=== PATIENT | male | born 1950 | race Caucasian/White ===

== ENCOUNTER 2018-04-26 09:28 | Emergency (ER) | payer MEDICARE, OTHER, SELFPAY ==
[2018-04-26 09:30] VITALS: BP 147/109; PULSE 71; RESP 16; TEMP 36.5; O2SAT 98; BMI 29.1
[2018-04-26 09:38] VITALS: BP 179/87; PULSE 43; RESP 16; O2SAT 99
--- NOTE | 2018-04-26 09:57 | CT_ITS ---
STUDY: CT BRAIN WITHOUT CONTRAST REASON FOR EXAM: Male, 68 years old. Headache with hypertension RADIATION DOSAGE (If Supplied By Facility): CTDIvol = ( 44.99 ) mGy, DLP = ( 779.24 ) mGycm TECHNIQUE: Transaxial CT imaging of the brain was performed without administration of intravenous contrast material. Individualized dose optimization techniques were used for this CT. COMPARISON: None. FINDINGS: Normal soft tissue structures. Normal calvarium. There is mild cerebral atrophy with widening of the extra-axial spaces and ventricular dilatation. There are areas of decreased attenuation within the white matter tracts of the supratentorial brain, consistent with microvascular disease changes. Normal basal ganglia and thalami. Normal brainstem. Normal cerebellum. There is no intracranial hemorrhage. There are no findings of an acute ischemic infarction. Normal visualized paranasal sinuses. CT/Brain/Head without Contrast IMPRESSION: Chronic involutional changes of the brain. Electronically Signed: Jordon Leal DO at 10:56 EDT Tel , Service support ,
--- NOTE | 2018-04-26 09:57 | EKG12_ITS ---
Test Reason : Blood Pressure : / mmHG Vent. Rate : 063 BPM Atrial Rate : 063 BPM P-R Int : 170 ms QRS Dur : 084 ms QT Int : 414 ms P-R-T Axes : 063 019 041 degrees QTc Int : 423 ms Sinus rhythm with frequent Premature ventricular complexes OTHERWISE NORMAL EKG Confirmed by SATURNINO BOND ([id number]), editor book RALPH HIRSCH ([id number]) on 05/01/2018 10:36:08 AM Referred By: SWATI Confirmed By:SATURNINO BOND
[2018-04-26 10:04] LABS: Absolute Lymphocyte Count 1.26 X10^3/ul (0.83-4.51); Absolute Neutrophil Count 3.5 X10^3/uL (2.0-7.7); Basophil# 0.03 X10^3/uL; Basophil% 0.6 % (0-1); Eosinophil# 0.09 X10^3/uL; Eosinophils% 1.7 % (0-5); Hematocrit 45.9 % (40-54); Hemoglobin 15.5 g/dl (13.0-16.5); Lymphocyte # 1.26 X10^3/ul (4.0); Lymphocyte % 24.1 % (19-41); Mean Corp Hgb Conc 33.8 g/gl (32-36); Mean Corpuscular Hgb 30.2 pg (27.0-32.0); Mean Corpuscular Volume 89.5 fL (80-94); Mean Platelet Vol. 9.8 fl (6.2-12.0); Monocyte# 0.37 X10^3/uL; Monocyte% 7.1 % (0-10); Neutrophil # 3.46 X10^3/uL (2.7-7.7); Neutrophil % 66.3 % (47-70); Platelet Count 199 K/mm3 (150-450); RBC Distribution Width CV 12.9 % (11.6-14.6); RBC Distribution Width SD 41.5 fl (35.1-43.9); Red Blood Count 5.13 M/mm3 (4.6-6.2); White Blood Count 5.2 K/mm3 (4.4-11.0)
[2018-04-26] MEDS: Morphine 4 MG/ML Syringe IV (10:04)
[2018-04-26 10:05] LABS: POSITIVE COUNT NO; POSITIVE DIFFERENTIAL NO; POSITIVE MORPHOLOGY NO
[2018-04-26] MEDS: Ondansetron 4 MG/2 ML Vial IV (10:05)
[2018-04-26 10:19] LABS: Anion Gap 6 (5-15); BUN 18 mg/dL (7-18); Calcium,Total 9.1 mg/dL (8.5-10.1); Chloride 105 mmol/L (98-107); EST Glomerular Filtration Rate 64 mL/min (>60); Est Glom Filt Rate - Afr Amer 77 mL/min (>60); Estimated Creatinine Clearance 60.83 ml/min; Glucose 116 mg/dL (74-106); Potassium 4.2 mmol/L (3.5-5.1); Sodium Level 138 mmol/L (136-145)
[2018-04-26 10:52] VITALS: BP 154/102; PULSE 60; RESP 12; O2SAT 96
[2018-04-26 11:17] VITALS: BP 154/91; PULSE 60; RESP 16; O2SAT 95
--- NOTE | 2018-04-26 11:34 | ED.VISSUMM ---
- ER Visit Summary Date of Service: 04/26/18 Chief Complaint: Headache History of Present Illness: The patient is a [address] Dwayne Batista III and a industrial relations worker at [facility]. Reports that at 530 this morning he woke with a headache. It is gradually worsened. It is a diffuse pain that he describes as dull. It is 4 out of 10 currently and 7 out of 10 at worst. It is unrelieved by aspirin. It is worsened by nothing. He denies any photophobia. No recent trauma to his head. No fever or chills. Patient reports that he took his blood pressure at home it was 201/110. He is not on any medications for his hypertension. States that typically his blood pressure is normal in the morning and low in the evening. On review of systems patient reports that he has paresthesias in his hands bilaterally and that his arms feel heavy since March 20. He denies any neck pain or chest pain. Physical Examination: Vitals: Stable. Afebrile. Neck: Supple with no meningismus. Neuro: Cranial nerves II through XII are intact, 5 out of 5 strength throughout, normal sensation to light touch throughout except decreased sensation to light touch in his hands bilaterally. Normal gait. General: A&O x 3. NAD. Cardiovascular exam: Regular rate and rhythm, no murmur, rub or gallop. Respiratory exam: Clear to auscultation bilaterally. No wheezes or stridor. Abdominal exam: Soft, nontender, nondistended, normal bowel sounds. No peritoneal signs. Extremity: No clubbing, cyanosis, or edema. Test Results: CT head shows chronic changes. EKG is sinus at 63 with frequent PVCs and no ischemic changes. Is unchanged since August 2016. CBC is normal. Chem-7 is marked for a glucose of 116. Troponin is negative. Emergency Department Course and Treatment: Initial blood pressure was 179/87. This is decreased to 154/91 with no treatment. His headache is essentially resolved and he is resting comfortably. Treatment Plan: Patient will be discharged instructions to follow-up Dr. Dwayne Batista III in a week to get his blood sugar pressure checked again. Return to the emergency department for any worsening symptoms. Disposition: To home in improved and stable condition. Impression: 1. Cephalgia. 2. Hypertension. 3. Paresthesias in hands bilaterally, chronic. This note was generated with [employer] dictation software. It may contain incorrect words, spelling, and punctuation that were not noted in review of the chart prior to signing ED Disposition - Plan for ED Patient: Chief Complaint: Headache Instructions: ED Cephalgia Unspecified, ED Hypertension Poss Referrals: Dwayne Batista III, MD [Primary Care Provider] - 1 Week
[2018-04-26 12:05] VITALS: BP 162/101; PULSE 59; RESP 16; O2SAT 94
== END 2018-04-26 12:07 | disposition home or self-care (01) ==
LOC: ED 10:50
PROVIDERS: Emergency Provider Emergency Medicine; Family Provider Family Medicine; PCP Family Medicine
DX: R51 Headache (principal); I10 Essential (primary) hypertension; R20.2 Paresthesia of skin; E78.00 Pure hypercholesterolemia, unspecified; Z87.891 Personal history of nicotine dependence
CPT/HCPCS: 70450; 80048; 84484; 85025; 93005; 99284; A4216; J2405

== ENCOUNTER 2019-02-20 12:16 | Emergency (ER) | payer MEDICARE, OTHER, SELFPAY ==
[2019-02-20 12:17] VITALS: BP 137/87; PULSE 70; RESP 16; TEMP 36.3; O2SAT 97; BMI 30.2
--- NOTE | 2019-02-20 12:28 | CT_ITS ---
STUDY: CT ABDOMEN AND PELVIS WITH CONTRAST REASON FOR EXAM: Male, 68 years old. Consummation. History of small bowel obstruction. RADIATION DOSAGE (If Supplied By Facility): CTDIvol = ( 20.81 ) mGy, DLP = ( 1225.77 ) mGycm TECHNIQUE: Transaxial images were obtained from the dome of the diaphragm to the symphysis pubis with oral contrast. 100mL IV/Oral Isovue 300 was administered. Sagittal and coronal images were reconstructed. Individualized dose optimization techniques were used for this CT. COMPARISON: None. FINDINGS: Minimal increased markings at the lung bases suggestive of atelectasis. The visualized portions of the heart are within normal limits. Normal liver. Normal gallbladder and extrahepatic biliary system. Normal spleen. Normal pancreas. Normal bilateral adrenal glands. Normal right kidney. Normal left kidney. There is a small hiatal hernia. Normal small intestine. There are multiple colonic diverticula consistent with diverticulosis. The appendix is visualized and appears normal. There is diffuse atherosclerotic calcification of the abdominal aorta, without a demonstrated aneurysm. Normal inferior vena cava. Normal retroperitoneum. Normal urinary bladder. There is a right-sided inguinal hernia containing adipose tissue. Small umbilical hernia containing fat. Disc space narrowing and disc degeneration at the L5-S1 level with spondylosis. CT/Abdomen/Pelvis WITH Contrast IMPRESSION: No acute abnormality is seen. Electronically Signed: Quique Rosales, at 15:30 EDT , Service support ,
[2019-02-20 12:49] LABS: Bacteria 0 SEEN /hpf (None Seen); Mucous, Urine 0 SEEN /hpf (<or=2+); Red Blood Cells-Urine 0 SEEN /hpf (0-5); Squamous Epithelial Cells - UA 0 SEEN /hpf (0-5); White Blood Cells 0 SEEN /hpf (0-5)
[2019-02-20 12:57] LABS: Color, Urine Yellow (Yellow); Glucose, Dipstick Normal (Normal); Ketone-Dipstick Negative (Negative); Leukocyte Esterase-Dipstick Negative /ul (Negative); Nitrite-Dipstick Negative (Negative); Occult Blood-Urine Negative /ul (Negative); Protein-Dipstick Negative (Negative); Urine Bilirubin Dipstick Negative (Negative); Urine Clarity Clear (Clear); Urine Urobilinogen Normal (Normal)
[2019-02-20 13:04] LABS: Absolute Lymphocyte Count 1.47 X10^3/ul (0.83-4.51); Absolute Neutrophil Count 3.7 X10^3/uL (2.0-7.7); Basophil# 0.02 X10^3/uL; Basophil% 0.4 % (0-1); Eosinophil# 0.03 X10^3/uL; Eosinophils% 0.5 % (0-5); Hematocrit 49.2 % (40-54); Hemoglobin 16.9 g/dl (13.0-16.5); Lymphocyte # 1.47 X10^3/ul (4.0); Lymphocyte % 26.3 % (19-41); Mean Corp Hgb Conc 34.3 g/gl (32-36); Mean Corpuscular Volume 90.3 fL (80-94); Mean Platelet Vol. 9.6 fl (6.2-12.0); Monocyte# 0.36 X10^3/uL; Monocyte% 6.5 % (0-10); Neutrophil % 66.3 % (47-70); POSITIVE COUNT NO; POSITIVE DIFFERENTIAL NO; POSITIVE MORPHOLOGY NO; Platelet Count 226 K/mm3 (150-450); RBC Distribution Width CV 13.3 % (11.6-14.6); RBC Distribution Width SD 43.4 fl (35.1-43.9); Red Blood Count 5.45 M/mm3 (4.6-6.2); White Blood Count 5.6 K/mm3 (4.4-11.0)
[2019-02-20 13:09] LABS: ALB/GLOB Ratio 1.5 RATIO (0.9-2.4); AST(SGOT) 27 U/L (15-37); Alanine Aminotransfer ALT/SGPT 41 U/L (16-61); Albumin, Serum 4.3 g/dL (3.2-5.0); Alkaline Phosphatase 67 U/L (45-117); Anion Gap 3 (5-15); BUN 20 mg/dL (7-18); BUN/Creat Ratio 16.5 RATIO (10-20); Calcium,Total 9.4 mg/dL (8.5-10.1); Chloride 106 mmol/L (98-107); Creatinine, Serum 1.21 mg/dL (0.70-1.30); EST Glomerular Filtration Rate 63 mL/min (>60); Est Glom Filt Rate - Afr Amer 77 mL/min (>60); Estimated Creatinine Clearance 60.33 ml/min; Globulin 2.8 g/dL (2.2-4.2); Glucose 106 mg/dL (74-106); Lipase 217 U/L (73-393); Potassium 4.1 mmol/L (3.5-5.1); Protein, Total 7.1 g/dL (6.4-8.2); Sodium Level 139 mmol/L (136-145)
[2019-02-20 14:20] VITALS: BP 140/93; PULSE 56; RESP 16; TEMP 36.6; O2SAT 97
--- NOTE | 2019-02-20 15:49 | ED.DCSUM_ITS ---
- ER Visit Summary Date of Service: 02/20/19 Chief Complaint: Abdominal pain History of Present Illness: The patient is a 68 M who was referred to the emergency department by Dr. Smith. Patient was seen at the [facility] today and states he had some plain films of his abdomen that was concerning for ileus versus obstruction. He states about 15 years ago he had a small bowel obstruction. He states for the past week he is felt constipated he has been able to pass gas. He notes nausea. He denies that his abdomen is significantly distended right now. Does note some urinary frequency. He has had left inguinal hernia repair. He last had colonoscopy about 5 years ago. Physical Examination: Afebrile vital signs stable Gen: Well-nourished well-developed Head: Normocephalic atraumatic Eyes: Perrl EOMI ENT: TMs clear no rhinorrhea moist mucous membranes Neck: Supple no lymphadenopathy no JVD nontender CVS: Regular rate rhythm no murmurs normal S1-S2 Respiratory: No distress clear to auscultation bilaterally chest nontender Abdomen: Soft nontender nondistended normal bowel sounds no masses Back: Nontender Extremity: Nontender no edema Skin: Normal color no rash Neuro: alert orientated ?3 CN II-XII intact normal strength sensation reflexes gait cerebellar Psych: Normal affect normal mood Test Results: CBC chemistries were negative liver negative urinalysis normal. CT of the abdomen and pelvis was negative for acute. Emergency Department Course and Treatment: I reviewed the case with Dr. Smith. Patient can follow-up with him as an outpatient. Impression: 1. Constipation This note was generated with [employer] dictation software. It may contain incorrect words, spelling, and punctuation that were not noted in review of the chart prior to signing ED Disposition - Plan for ED Patient: Disposition: Home or Assisted Living Instructions: ED Constipation Referrals: Dwayne Batista III, MD [Primary Care Provider] - 1 Week Javed Verdugo MD [STAFF PHYSICIAN] - (call to arrange follow up)
[2019-02-20 16:11] VITALS: BP 143/87; PULSE 61; RESP 16; TEMP 36.6; O2SAT 99
== END 2019-02-20 16:21 | disposition home or self-care (01) ==
PROVIDERS: Emergency Provider Emergency Medicine; Family Provider Family Medicine; PCP Family Medicine
DX: K59.00 Constipation, unspecified (principal); I10 Essential (primary) hypertension; E78.00 Pure hypercholesterolemia, unspecified; Z87.891 Personal history of nicotine dependence
CPT/HCPCS: 74177; 80053; 81001; 83690; 85025; 99283; Q9967

== ENCOUNTER → 2019-03-05 08:56 | Outpatient (CLI) | payer MEDICARE, OTHER, SELFPAY ==
[2019-02-20 12:17] VITALS: BMI 30.2
--- NOTE | 2019-03-05 09:21 | RAD_ITS ---
PROCEDURE: SMALL BOWEL SERIES DATE OF EXAMINATION: March 05, 2019.. INDICATION: Male, 68 years old. Left upper quadrant pain for one month. PHYSICIAN: Quique Rosales M.D. FLUOROSCOPY TIME (if supplied): (0:10) minutes/seconds TECHNIQUE: Radiographic and fluoroscopic images were taken of the small intestine following the ingestion of barium. COMPARISON: None. FINDINGS: A preliminary supine KUB was obtained. Nonspecific bowel gas pattern. Fecal material is present throughout the colon. The lung bases are unremarkable. The osseous structures are normal. The patient orally ingested approximately 12 ounces of thin barium Normal visualized fundus, body, and antrum of the stomach. Normal duodenal bulb, C-loop, and proximal jejunum. Normal visualized mucosal folds of the jejunum and ileum. There are no demonstrated dilatations, strictures, or masses of the small intestine. There is no mass displacement of the loops of small intestine. There is a normal motor pattern with barium reaching the colon within approximately 90 minutes. Spot films under fluoroscopic observation demonstrated a normal terminal ileum and ileocecal valve. RAD/Small Bowel Series Only IMPRESSION: Normal small bowel series. Electronically Signed: Quique Rosales, at 14:45 EDT , Service support ,
== END ==
PROVIDERS: Family Provider Family Medicine; PCP Family Medicine; Referring Provider Surgery; Visit Provider Surgery
DX: R10.12 Left upper quadrant pain (principal); K59.00 Constipation, unspecified
CPT/HCPCS: 74250

== ENCOUNTER 2021-09-15 09:11 | Emergency (ER) | payer MEDICARE, SELFPAY ==
[2021-09-15 09:12] VITALS: BP 129/79; PULSE 70; RESP 18; TEMP 36.2; O2SAT 98; BMI 30.7
--- NOTE | 2021-09-15 09:35 | US_ITS ---
STUDY: ABDOMINAL ULTRASOUND - RIGHT UPPER QUADRANT REASON FOR VISIT: Male, 71 years old right upper quadrant pain and nausea. TECHNIQUE: Ultrasound evaluation of the right upper quadrant was performed with real-time and static chun-scale imaging. TECHNICAL QUALITY: Adequate. COMPARISON: None. FINDINGS: Liver: The liver measures 16.6 cm. There is increased echogenicity consistent with fatty infiltration. The bile ducts are within normal limits. There is hepatic color flow. The direction of portal flow is hepatopetal. There is no demonstrated mass lesion. Gallbladder: Normal distended gallbladder. The gallbladder wall is slightly thickened and measures 3.2 mm. There is a positive sonographic Nolan''s sign. There is no pericholecystic fluid. There are multiple echogenic structures within the gallbladder, consistent with multiple gallstones. Common Bile Duct (C.B.D.): The common bile duct measures 4.2 mm. Pancreas: Normal size of the head, body and tail of the pancreas. There is normal echogenicity of the pancreas. There is no demonstrated pancreatic mass or cyst. Right Kidney: Normal size of the right kidney. The right kidney measures 11 cm x 5.3 cm x 6 cm. Normal renal cortex. The right cortex measures 1.7 cm. There is no demonstrated renal mass or cyst. There is no right hydronephrosis. US/Gallbladder IMPRESSION: Fatty infiltration of the liver. Multiple gallstones. Positive NOLAN sign. Electronically Signed: Quique Rosales MD at 11:21 EST , Service support ,
--- NOTE | 2021-09-15 09:38 | EDS_ITS ---
HPI HPI - GI History of Present Illness Chief Complaint: Abd Pain Detail of Chief Complaint: Right upper quadrant abdominal pain. Informant: patient and spouse/S.O. Abdominal Pain/Flank Pain Onset: Today and Hours Context: Gradual Onset Timing: Continuous Quality: Aching Location: RUQ Current Severity: Mild Maximum Severity: Moderate Worsened by: Nothing Relieved by: Nothing Nausea/Vomiting/Emesis GI Symptom: Positive for Nausea; Negative for Vomiting Onset: Today Severity: Mild Diarrhea/Melena/Hematochezia GI Symptom: Negative for Diarrhea, Melena and Hematochezia Associated Symptoms Associated Symptoms: Negative for Dysuria and Frequency Narrative Narrative: 71-year-old male history of hypertension, prediabetes and high cholesterol. He has had a prior hernia repair. Still has his gallbladder. States he woke up this morning with nausea and gradually developed right upper quadrant abdominal pain. He denies any fever or chills. He has never had any issues with his gallbladder that he is aware of. He denies any recent food intolerances. Prior similar symptoms: No Recent Illness/Hospitalization: No PFSH PFSH Medical History Hypertension Home Medications hydrochlorothiazide 12.5 mg DAILY 02/20/19 [History Last Taken Unknown] amlodipine 5 mg PO DAILY 09/15/21 [History Last Taken Unknown] Allergy/AdvReac Type Severity Reaction Status Date / Time COUGH MEDICINE AdvReac Other Uncoded 02/20/19 12:17 Social History Smoking Status: Former smoker ROS ROS ED ROS Narrative Nausea. Right upper quadrant pain. Review of Systems ROS Unobtainable: Denies due to encephalopathy Constitutional Constitutional ED: Denies chills or fever(s) ENT ENT ED: Denies ear pain Cardiovascular Cardiovascular: Denies chest pain Respiratory/Chest Respiratory/Chest: Denies cough or dyspnea Gastrointestinal Gastrointestinal: Reports abdominal pain and nausea; Denies diarrhea or vomiting Genitourinary Genitourinary ED: Denies dysuria or hematuria Musculoskeletal Musculoskeletal: Denies myalgias Integumentary Denies rash Neurologic Neurologic: Denies headache(s) Psychiatric Psychiatric: Denies depression Endocrine Endocrinology: Denies polyuria Hematologic/Lymphatic Hematologic/Lymphatic: Denies easy bruising Allergic/Immunologic Allergic/Immunologic ED: Denies urticaria EXAM Physical Exam Narrative Exam Narrative: 31-year-old male vital signs stable afebrile. Does not look septic or toxic. HEENT exam unremarkable. Lungs clear to auscultation. Heart regular rhythm no murmur. Rate about 70. Abdomen soft nondistended normal bowel sounds no peritoneal signs. Right upper quadrant tenderness. Right lower quadrant and left side unremarkable. No hernia or mass. Moving all 4 extremities. No edema. Neurologically awake and alert. No focal motor deficits. Back nontender. Const Vital Signs: 09/15/21 09:12 09/15/21 11:01 Temperature 97.1 F L Temperature Source Temporal Pulse Rate 70 61 Respiratory Rate 18 16 Blood Pressure 129/79 H 122/75 H Blood Pressure Mean 95 90 Pulse Ox 98 96 Oxygen Delivery Method Room Air Room Air Positive well nourished and well developed; Negative for cachectic, contractures or unkempt General Appearance ED: well developed and NAD; Negative for unkempt, cachectic, contractures or pallor Nutritional Appearance: Negative for cachectic HEENT Reports moist mucous membranes normocephalic and atraumatic Eyes PERRL and EOMs intact bilaterally Neck no lymphadenopathy, supple and no JVD General: Negative for tenderness Resp normal respiratory effort and clear to auscultation bilaterally Auscultation: Negative for rales, rhonchi or wheezes Cardio regular rate, regular rhythm, S1 normal heart sound, S2 normal heart sound and no murmurs GI non-distended and no masses; Negative for non-tender GI Narrative: Right upper quadrant tenderness. Auscultation: normoactive bowel sounds Palpation: soft and tender Back/Spine no CVA tenderness General Back: Negative for CVA tenderness Cervical Spine: Negative for cervical spine tenderness Extremity full ROM General Extremety ED: Negative for edema or tenderness General Extremity: Negative for edema Neuro CN's II-XII intact bilaterally and moves all extremities Sensorium / Orientation: alert, oriented to person, oriented to place and oriented to time; Negative for orientation impaired Psych mental status grossly normal Appearance: Negative for unkempt Skin no wounds General Skin Exam: Negative for jaundice or pallor Lesions: no lesions Rashes: no rashes MDM MDM MDM Narrative Medical decision making narrative: 71-year-old male right upper quadrant abdominal pain suspect secondary to gallbladder disease either cholecystitis or stone versus other. Labs are being obtained with an ultrasound. Be treated with morphine for pain and Zofran for nausea. Repeat exam at 11:50 AM patient doing well. Abdomen is benign. No Nolan sign. No right upper quadrant pain. He is much improved after the medications. We went over his test results and the diagnosis of biliary colic. They wanted to follow-up with Dr. José Miguel Batista as a local surgeon. They will call his office. They know when to return if worse. Lab Data Attestation: I reviewed the patient's lab results. Lab results narrative: CBC shows a white count of 7. Hemoglobin 15. Electrolytes unremarkable gap of 8 BUN 21 creatinine 1.27. Glucose 162. Liver enzymes are normal. Lipase of 166. Ultrasound right upper quadrant shows multiple gallstones. Labs: Laboratory Results - last 24 hr 09/15/21 09/15/21 08:30 08:30 WBC 7.5 RBC 5.23 Hgb 15.7 Hct 45.9 MCV 87.8 MCH 30.0 MCHC 34.2 RDW Std Deviation 42.2 RDW Coeff of Christos 13.2 Plt Count 246 MPV 9.8 Immature Gran % (Auto) 0.400 Neut % (Auto) 83.0 H Lymph % (Auto) 10.7 L [place] % (Auto) 5.2 Eos % (Auto) 0.3 Baso % (Auto) 0.4 Absolute Neuts (auto) 6.2 Absolute Lymphs (auto) 0.80 L Nucleated RBC % 0 Sodium 139 Potassium 3.8 Chloride 106 Carbon Dioxide 25.0 Anion Gap 8 BUN 21 H Creatinine 1.27 Estim Creat Clear Calc 55.09 Est GFR (MDRD) Af Amer 72 Est GFR (MDRD) Non-Af 59 L BUN/Creatinine Ratio 16.5 Glucose 162 H Calcium 8.9 Total Bilirubin 0.60 AST 28 ALT 39 Alkaline Phosphatase 67 Total Protein 6.8 Albumin 3.6 Globulin 3.2 Albumin/Globulin Ratio 1.1 Lipase 166 Radiography Diagnostic Testing: Clinical Impression(s) from Imaging Studies Gallbladder Ultrasound 09/15/21 09:35 IMPRESSION: Fatty infiltration of the liver. Multiple gallstones. Positive NOLAN sign. Electronically Signed: Quique Rosales MD at 11:21 EST , Service support , Discharge Plan Triage Chief Complaint: Abd Pain ED Provider: Elio Brannon Dx/Rx/DC Orders Clinical Impression: Abdominal pain, acute, right upper quadrant, Gallstones without obstruction of gallbladder Instructions: ED Gallstones with Biliary Colic Prescriptions: No Action hydrochlorothiazide 12.5 MG capsule 12.5 mg DAILY RF: 0 amlodipine 5 mg Tablet 5 mg PO DAILY RF: 0 Primary Care Provider: Osvaldo Garcia Referrals: Dwayne Batista III, MD [STAFF PHYSICIAN] - José Miguel Batista MD [STAFF PHYSICIAN] - As soon as possible Activity Restrictions/Additional Instructions: Call and follow-up with Dr. José Miguel Batista about discussing with him having your gallbladder taken out. Return emergency department if intractable pain, vomiting or fever. [place] diet. Disposition Disposition: Home, Self Care
[2021-09-15] MEDS: morphine 8 MG/ML Syringe IV (09:45)
[2021-09-15] MEDS: Ondansetron 4 MG/2 ML Vial IV (09:45)
[2021-09-15 09:46] LABS: Absolute Neutrophil Count 6.2 X10^3/uL (2.0-7.7); Basophil# 0.03 X10^3/uL; Basophil% 0.4 % (0-1); Eosinophil# 0.02 X10^3/uL; Eosinophils% 0.3 % (0-5); Hematocrit 45.9 % (40-54); Hemoglobin 15.7 g/dL (13.0-16.5); Lymphocyte % 10.7 % (19-41); Mean Corp Hgb Conc 34.2 g/dL (32-36); Mean Corpuscular Volume 87.8 fL (80-94); Mean Platelet Vol. 9.8 fl (6.2-12.0); Monocyte# 0.39 X10^3/uL; Monocyte% 5.2 % (0-10); NRBC Flagged by Analyzer 0 % (0-5); Neutrophil # 6.23 X10^3/uL (2.7-7.7); Platelet Count 246 K/mm3 (150-450); RBC Distribution Width CV 13.2 % (11.6-14.6); RBC Distribution Width SD 42.2 fl (35.1-43.9); Red Blood Count 5.23 M/mm3 (4.6-6.2); White Blood Count 7.5 K/mm3 (4.4-11.0)
[2021-09-15] MEDS: 0.9% Normal Saline 1,000 ML 125 ML IV (09:46)
[2021-09-15 09:59] LABS: ALB/GLOB Ratio 1.1 RATIO (0.9-2.4); AST(SGOT) 28 U/L (15-37); Alanine Aminotransfer ALT/SGPT 39 U/L (16-61); Albumin, Serum 3.6 g/dL (3.2-5.0); Alkaline Phosphatase 67 U/L (45-117); Anion Gap 8 (5-15); BUN 21 mg/dL (7-18); BUN/Creat Ratio 16.5 RATIO (10-20); Calcium,Total 8.9 mg/dL (8.5-10.1); Chloride 106 mmol/L (98-107); Creatinine, Serum 1.27 mg/dL (0.70-1.30); EST Glomerular Filtration Rate 59 mL/min (>60); Est Glom Filt Rate - Afr Amer 72 mL/min (>60); Estimated Creatinine Clearance 55.09 ml/min; Globulin 3.2 g/dL (2.2-4.2); Glucose 162 mg/dL (74-106); Lipase 166 U/L (73-393); Potassium 3.8 mmol/L (3.5-5.1); Protein, Total 6.8 g/dL (6.4-8.2); Sodium Level 139 mmol/L (136-145)
[2021-09-15 11:01] VITALS: BP 122/75; PULSE 61; RESP 16; O2SAT 96
[2021-09-15 12:13] VITALS: BP 138/79; PULSE 54; RESP 16; O2SAT 98
== END 2021-09-15 12:13 | disposition home or self-care (01) ==
PROVIDERS: Emergency Provider Emergency Medicine; PCP Family Medicine
DX: K80.20 Calculus of gallbladder without cholecystitis without obstruction (principal); I10 Essential (primary) hypertension; Z79.899 Other long term (current) drug therapy; Z87.891 Personal history of nicotine dependence
CPT/HCPCS: 76705; 80053; 83690; 85025; 96361; 96374; 96375; 99283; J7030; A4216; J2405

== ENCOUNTER 2021-09-17 08:02 | Day surgery (SDC) | payer MEDICARE, SELFPAY ==
[2021-09-17] VITALS (9 sets, daily range): BP systolic 101–146; BP diastolic 46–87; PULSE 60–73; RESP 16–18; TEMP 36–36.2; O2SAT 93–99; BMI 29.6
--- NOTE | 2021-09-17 | GALL_PTH ---
PATIENT: COLT HURT LOC: [facility] U#:[id number] AGE/SX: 71/M ROOM: RE09/17/[address]: Dr. José Miguel Batista MD : 1950 BED: DIS: 09/17/2021 SPEC #: [id number] RECD: 09/18/21 09:52 STATUS: BRITTNEY WALKER #: [id number] DERICK: 09/17/21 00:[address]: José Miguel Batista DEPT: SURGICAL PATHOLOGY RECD BY: Atilio Horowitz ENTERED: 09/18/21 09:52 SP TYPE: SHIRA GIBSON DR: Osvaldo Garcia MD Tissues: Gallbladder, NOS Procedures: Surgery Specimen Level III HEADER OPERATION: Laparoscopic cholecystectomy with IOC PRE-OP DIAGNOSIS: Gallstones without obstruction of gallbladder and abdominal pain TISSUE SUBMITTED: Gallbladder MICROSCOPIC DIAGNOSIS Gallbladder, cholecystectomy: Chronic cholecystitis and cholelithiasis. SJ:madan 09/21/2021 MICROSCOPIC DESCRIPTION Slides are reviewed. GROSS DESCRIPTION Received is one container labeled with the patient's name and designated gallbladder. The specimen consists of a gallbladder measuring 8 cm in length and 3.5 cm in diameter. The external surface is pink-hoff, smooth and glistening for the most part. Focally it is granular, hemorrhagic and contains cautery artifact. The gallbladder contains five mulberry, yellowish-orange stones measuring in aggregate 2.5 x 1.5 x 1 cm and 0.3 to 1 cm in greatest dimension. The mucosa is bile-stained and without any mass lesions. The gallbladder wall measures up to 0.5 cm in thickness. Increased amount of subserosal fat is also noted. [employer] sections from the gallbladder and the cystic duct are submitted in one cassette. / SJ:madan 09/18/21 TC:3 CPT: 17590
--- NOTE | 2021-09-17 08:12 | RAD_ITS ---
EXAM: XR ABDOMEN, 2 VIEWS CLINICAL INDICATION: ABD PAIN Technologist Notes PT STATES NO PAIN, HAS INDIGESTION X COUPLE YEARS , HX OF HERNIA TECHNIQUE: Frontal view of the abdomen/pelvis with upright view of the abdomen. This report was created using [employer] report generation technology. COMPARISON: None. FINDINGS: LOWER THORAX: No acute pathology. INTRAPERITONEAL SPACE: No free air. GASTROINTESTINAL TRACT: Unremarkable. Non-obstructive. No bowel or stomach distention. ORGANS: Unremarkable as visualized. No organomegaly. No abnormal calcifications. BONES/JOINTS: No acute pathology. SOFT TISSUES: No acute pathology. RAD/Abd Inc Decub and/or Erect IMPRESSION: Unremarkable abdominal series. Electronically Signed: César Camacho MD at 17:00 EST , Service support ,
--- NOTE | 2021-09-17 13:08 | EKG12_ITS ---
Test Reason : PRE OP Blood Pressure : / mmHG Vent. Rate : 067 BPM Atrial Rate : 067 BPM P-R Int : 154 ms QRS Dur : 086 ms QT Int : 402 ms P-R-T Axes : -77 029 038 degrees QTc Int : 424 ms Unusual P axis, possible ectopic atrial rhythm Abnormal ECG When compared with ECG of 26-APR-2018 10:09, Ectopic atrial rhythm has replaced Sinus rhythm Confirmed by EREN RENEE, GURMEET ([id number]), primer expeditor and drier TAYE BACK ([id number]) on 09/22/2021 11:14:46 AM Referred By: José Miguel Batista Confirmed By:GURMEET JASON MD
[2021-09-17] MEDS: Famotidine 200 MG/20 ML MDV 40 MG in 0.9% Normal Saline (Pres. free 6 ML 150 MG IV (14:20)
--- NOTE | 2021-09-17 14:20 | PCM.HP.BLA ---
History and Physical Date of Admission: 09/17/21 Intake Visit Reasons: gallbladder, abd pain Chief Complaint: abdominal pain Accompanied by: Is patient in pain?: No Allergies Rrgluov-Rtf-Zno Reductase Inhibitor Allergy (Unknown, Verified 09/17/21 07:49) unknown COUGH MEDICINE Adverse Reaction (Uncoded 02/20/19 12:17) Other Medications hydrochlorothiazide 12.5 mg DAILY 02/20/19 [History Confirmed 09/17/21] amlodipine 5 mg PO DAILY 09/15/21 [History Confirmed 09/17/21] aspirin 81 mg capsule 81 mg PO DAILY 09/17/21 [History Confirmed 09/17/21] [facility] Medical History (Updated 09/17/21 @ 08:[address] José Miguel Batista MD) Abdominal pain, acute, right upper quadrant Gallstones without obstruction of gallbladder Hypertension Surgical History (Updated 09/17/21 @ 07:46 by Cyndi Michelle) History of hernia repair History of tonsillectomy Family History (Updated 09/17/21 @ 07:48 by Cyndi Michelle) Brother Arthritis Father Arthritis Hypertension High cholesterol Mother Hypertension High cholesterol Social History (Updated 09/17/21 @ 07:46 by Cyndi Michelle) Smoking Status: Former smoker alcohol intake: current substance use type: does not use HPI HPI HPI: COLT HURT, is a 71 M who presents to the office today for surgical consultation regarding abdominal pain. The patient is referred by emergency room physician Dr. Osvaldo Brannon and a written copy of my surgical consult and recommendations will return to him. The patient was seen in the [facility] emergency room on September 15, 2021 with a complaint of acute right upper quadrant pain. The patient had been nauseated though no vomiting. Right upper quadrant tenderness was noted on exam. He was afebrile. His laboratories notable for a white blood cell count of 7.5 with a hemoglobin 15.7 hematocrit 45.9 platelet count 246,000. BMP had a BUN of 21 and creatinine of 1.27. Liver function tests were normal. Lipase 166. A gallbladder ultrasound was obtained showing fatty infiltration of the liver multiple gallstones and there was felt to be a positive Nolan sign. It was recommended to the patient that he seek outpatient care and was referred to me for surgical treatment. The patient presents to the office with his . His story is much more complex than previously advertised. For years he has had abdominal bloating indigestion he frequently takes Gaviscon. Dr. Grover Verdugo 2 years ago did perform an upper endoscopy demonstrating duodenitis and gastritis. The patient was placed on omeprazole therapy but he took a course of that then he stopped it. He very frequently takes Gaviscon for symptoms of indigestion. He states that he was on statin medications which caused him to get very anxious. 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 He is not currently on a statin medication but he feels that it caused him to have an anxiety issue as well. He states several years ago he also had a colonoscopy with some few polyps. He states he is due for follow-up exam in 1 year. We have evidence of December 06, 2004 when he was hospitalized at [facility] for small bowel obstruction. CT scan suggested suspicious for early or incomplete small bowel obstruction. Appendix could not be identified. Very slight streaking of fat in the right side of the abdomen but no evidence for abscess. No fluid collection. At that time the patient had periumbilical and midepigastric pain. The exact etiology actually was never deciphered. He resolved with conservative measures. He frequently has burping and belching. He frequently has nausea. He frequently has upper abdominal discomfort left upper quadrant discomfort left lower quadrant discomfort. He had more right upper quadrant discomfort and that is why he went to the emergency room. He has not noticed any dark-colored urine. He has moved his bowels several times since the emergency room visit. No bright red blood per rectum or melena. No cari colored stools. This is the first time that he has been diagnosed with gallstone disease. ROS General General: Yes fatigue; No weight change, appetite, colon cancer, breast cancer or weakness HEENT HEENT: No difficulty swallowing, eye injury, eye surgery, swollen glands or hoarseness Endo Endocrine: No thyroid disease, diabetes mellitus, thyroid cancer, Hair loss, heat intolerance or cold intolerance Skin Skin: No rash or changing moles Breast Breast: No left breast lump, right breast lump, nipple discharge, breast pain, abnormal mammogram, abnormal US or breast enlargement Musc Musculoskeletal: Yes back problems; No arthritis, rheumatoid arthritis, gout or joint pain Cardio Cardiovascular: Yes high blood pressure; No murmur, pacemaker, heart disease, atrial fibrillation, heart attack, heart stent, palpitations, shortness of breat with exertion or chest pain Psych Psychiatric: Yes anxiety; No depression or hearing voices Resp Respiratory: No shortness of breath, No sleep apnea, No cough, No COPD, No asthma, No emphysema and No wheezing Gastro Gastrointestinal: Yes abdominal pain, Yes nausea or vomiting, No diarrhea, Yes constipation, No blood in stool, Yes acid reflux, No hemorrhoids, No ulcers, Yes gallbladder problem and No black,tarry stools Josh Hematologic: Yes blood thinners, No blood disorders, No bleeding, No anemia and No blood clots Neuro Neurologic: No system reviewed and no additional complaints, except as documented, No as per HPI, No abnormal gait, No abnormal hearing, No abnormal movements, No abnormal speech, No behavioral changes, No burning sensations, No confusion, No convulsions, No disequilibrium, No dizziness, No localized weakness, No frequent falls, No headache(s), No lack of coordination, No loss of vision, No memory loss, Yes numbness, No other visual disturbances, No radicular pain, No restless legs, No sensory deficit, No syncope, Yes tingling, No tremor(s), No weakness and No other Exam Const General: cooperative, comfortable and no acute distress Nutritional Appearance: overweight [facility] Head: normal to inspection Eyes General: appearance normal, both eyes and all related structures Chest Other: Increased anterior posterior diameter Cardio Rate: regular rate Rhythm: regular rhythm GI Other: Soft, overweight, normal bowel sounds, small umbilical hernia, mild tenderness left upper quadrant. Mild tenderness left lower quadrant. Mild tenderness right upper quadrant. Musc Cervical Spine: normal cervical lordosis Neuro General: patient alert and patient awake Extrem General: no calf tenderness Psych Appearance: grossly normal Assessment and Plan Assessment and Plan (1) History of peptic ulcer disease: Status: Acute (2) Gallstones without obstruction of gallbladder: Status: Acute (3) Abdominal pain, acute, right upper quadrant: Status: Acute (4) History of small bowel obstruction: Status: Acute Orders: Orders: Abd Inc Decub and/or Erect Today K80.20, R10.11 Plan Details Additional Comments: 71-year-old gentleman with a challenging presentation. He has newly diagnosed gallstones. He had the majority of his pain in the right upper quadrant. I suspect that the symptoms that took him to the emergency room likely are biliary colic chronic cholecystitis cholelithiasis. However he has a documented history of peptic ulcer disease. He complains of frequent indigestion. Although he was previously prescribed omeprazole 40 mg daily he is not currently taking that and he is not currently on any acid reducing medications other than as needed Gaviscon. He states the Gaviscon did not relieve his current problem though frequently it does. He has frequent burping and belching. He states that he felt that this episode was similar to the episode in 2004 when he was diagnosis of potential bowel obstruction. However upon reviewing that dictation it was quite nonspecific for bowel obstruction versus other. He has not had a similar hospitalization since that time. I recommend to him that we obtain supine and upright abdominal x-rays. If that demonstrates a normal gas pattern then I have offered him a laparoscopic cholecystectomy with selective cholangiography and I discussed technique benefit risk complications alternatives. I do believe that he should be initiated on acid reducing medication as well. Will consider rerecommending omeprazole 40 mg daily as he may well have a degree of stress gastritis. If his bowel gas pattern is abnormal then I would consider getting a CT scan of the abdomen. He might also then benefit from a upper endoscopy. He has had an opportunity ask and have questions answered. We will schedule and proceed as noted. Copy: Dr. Osvaldo Brannon and Dr. Osvaldo Batista M.D., F.A.C.S. I have re-examined the patient. There are no clinical changes since date of exam.
--- NOTE | 2021-09-17 14:21 | EX.PCM.DISCH ---
Discharge Instructions Procedure General Surgery Diet Discharge Diet: Light diet - advance as tolerated (if you have questions about your diet instructions, please talk to you doctor.) Activity Discharge Activity: May Not Drive (for 3-5 days or while taking narcotic pain medicine.) May shower in (days): 1 Lifting Restrictions: 10 pounds Dressing / Incision Call your doctor if your incision/area has: Continuous Slow Oozing, Sudden Increased Bleeding, Increased Pain/ Swelling, Increased Redness and Foul Smelling Discharge Call your doctor if you observe: Fever of 101 or Higher Suture Line Care: Avoid Pulling/Pushing and Avoid Pinching/Bending Additional Dressing/Incision Instructions:: Change or remove dressing in 4 days. Leave steri-strips in place for 1 week. Follow Up Care Please Follow Up With: José Miguel Batista MD When: Call [phone] to make an appointment to be seen in about 10 days. Test Results: Test results from this visit will be discussed in further detail at your follow-up appointment, if applicable. Discharge Plan Admission Attending Provider: José Miguel Batista Primary Care Provider: Osvaldo Garcia Discharge Orders/Prescriptions Prescriptions: No Action aspirin 81 mg capsule 81 mg PO DAILY RF: 0 omeprazole 40 mg capsule,delayed release(DR/EC) 40 mg PO DAILY Qty: 90 RF: 3 hydrochlorothiazide 12.5 MG capsule 12.5 mg DAILY RF: 0 amlodipine 5 mg Tablet 5 mg PO DAILY RF: 0
[2021-09-17] MEDS: Cefazolin 2 GM in 0.9% Normal Saline 100 ML IV (15:01)
--- NOTE | 2021-09-17 15:20 | RAD_ITS ---
CLINICAL HISTORY: Male, 71 years old. Cholelithiasis PROCEDURE: CHOLANGIOGRAM - transhepatic FLUOROSCOPY TIME (if supplied): (0.7) seconds Placement of the catheter and the procedure were performed by: Operating surgeon Fluoroscopy was provided by cytometry technologist, who was present in the room time of the procedure. TECHNIQUE: Fluoroscopic guided transhepatic cholangiogram was performed in the anterior projection. The study was videotaped for future review. FINDINGS: 159 images were obtained during the exam. For more complete information recommend correlation with surgical notes RAD/Cholangiogram/ O R,Initial IMPRESSION: Fluoroscopic guided transhepatic cholangiogram Electronically Signed: Osvaldo Orozco MD at 16:42 EST , Service support ,
--- NOTE | 2021-09-17 16:17 | OP.PCM_ITS ---
Problems Associated Problem List Diagnoses (1) Cholelithiasis with chronic cholecystitis: Report of Operation Date of Procedure: 09/17/21 Pre-Operative Diagnosis: Chronic cholecystitis cholelithiasis Post-Operative Diagnosis: Same Surgery/Procedure Performed:: Laparoscopic cholecystectomy with cholangiograms Description of Surgical Findings:: Timeout informed consent was obtained. [age]-year-old gentleman was taken to the operating placement table underwent general endotracheal intubation esthesia. Ancef 2 g were given intravenously. The abdomen sterilely prepped draped. 0.5% Marcaine was used as a local anesthetic. Throughout the procedure total 30 cc was used. Skin sites were preanesthetized. A supraumbilical transverse incision was created sharp dissection carried down through the subcutaneous tissue holding sutures of 0 Vicryl placed varies needle inserted first pass suggested that the saline drop test was normal but the air insufflation test failed I reposition the needle this time got good air insufflation then inflated to 10 mmHg pressure inserted a 10 mm trocar inspection revealed that there was a small amount of pneumo mesentery. I put 5 mm trochars in the epigastric mid abdomen right upper quadrant that area of pneumo mesentery of the small bowel was carefully carefully inspected both laparoscopically and the end of the procedure through the umbilical incision in a slightly open technique. There is absolutely no evidence of any bowel involvement. Small amount of air in the mesentery. There is no bleeding. This was felt to be secondary to the Veress needle which had been immediately curtailed after initiation. The patient was placed in reverse Trendelenburg position. Gallbladder was obscured by fibrofatty tissue. Tedious and carefully the fatty tissue surrounding the gallbladder was bluntly eating and dissected free and dissected free with electrocautery. Finally the wall of the gallbladder could be identified dissected down to the infundibular area and got the critical view where I had the cystic artery and cystic duct. The cystic artery was clipped twice proximally once distally prior to transecting it. A Hem-o-faustino clip was placed on the cystic duct incision in the cystic duct and then a cholangiogram catheter was introduced through a 14-gauge Angiocath. Cholangiograms were obtained fluoroscopically demonstrating a long cystic duct but free flow into the common bile duct free flow into the small bowel had good retrograde flow without any evidence of intraluminal filling defect. An additional Hem-o-faustino clip was placed on the cystic duct stump prior to transecting it. There appeared to be a posterior cystic artery that was also clipped with a Hemoclip. The gallbladder was dissected free from the liver bed using electrocautery complete hemostasis is intact with electrocautery and hemoclips lock clips were indicated. The gallbladder was released there was no spillage the gallbladder bed inspected completely hemostatic the gallbladder was placed in a retrieval bag and exited at the umbilicus. The trochars were removed after gas was exited through an antiviral valve. The fascia antibiotics approximated running 0 Vicryl. Skin edges approximated opted for Monocryl subdermal stitches. Steri- Strips Telfa OpSite dressings applied. Sponge and instrument and needle counts were reported to the surgeon be correct. Blood loss was minimal. Specimens gallbladder. Drains none. Blood loss minimal. José Miguel Batista M.D., F.A.C.S. Surgeon: José Miguel Batista Type of Anesthesia: General Anesthesiologist: Clarence Gibson
[2021-09-17] MEDS: Bupivacaine Mpf 0.5% 30 ML VIAL (16:18)
== END 2021-09-17 19:05 | disposition home or self-care (01) ==
LOC: RAD 09:07 → SDC 09:08 → AC 13:01
PROVIDERS: PCP Family Medicine; Referring Provider Surgery; Visit Provider Surgery
PROC: (CPT 47610; principal; 2021-09-17 14:55)
DX: K80.10 Calculus of gallbladder with chronic cholecystitis without obstruction (principal); I10 Essential (primary) hypertension; K21.9 Gastro-esophageal reflux disease without esophagitis; Z79.899 Other long term (current) drug therapy; Z87.891 Personal history of nicotine dependence; Z87.11 Personal history of peptic ulcer disease
CPT/HCPCS: 00790; 47563; 74019; 74300; 76000; 88304; 93005; J7120; J2405; J3490

== ENCOUNTER 2021-10-19 14:33 | Inpatient (IN) | payer MEDICARE, SELFPAY ==
[2021-10-19 14:34] VITALS: BP 131/74; PULSE 117; RESP 18; TEMP 36.7; O2SAT 95; BMI 29.9
[2021-10-19 16:29] LABS: Absolute Lymphocyte Count 0.69 X10^3/uL (0.83-4.51); Absolute Neutrophil Count 12.5 X10^3/uL (2.0-7.7); Basophil# 0.02 X10^3/uL; Basophil% 0.1 % (0-1); Hematocrit 52.4 % (40-54); Lymphocyte # 0.69 X10^3/ul (0.83-4.51); Mean Corp Hgb Conc 34.7 g/dL (32-36); Mean Corpuscular Hgb 30.2 pg (27.0-32.0); Mean Platelet Vol. 9.5 fl (6.2-12.0); Monocyte# 0.66 X10^3/uL; Monocyte% 4.7 % (0-10); NRBC Flagged by Analyzer 0 % (0-5); Neutrophil # 12.52 X10^3/uL (2.7-7.7); Neutrophil % 89.9 % (47-70); Platelet Count 268 K/mm3 (150-450); RBC Distribution Width CV 13.2 % (11.6-14.6); RBC Distribution Width SD 41.2 fl (35.1-43.9); Red Blood Count 6.02 M/mm3 (4.6-6.2); White Blood Count 13.9 K/mm3 (4.4-11.0)
--- NOTE | 2021-10-19 16:44 | CT_ITS ---
INDICATION: Distention, nausea vomiting, no flatus EXAMINATION: CT Abdomen And Pelvis W/ Contrast Injection TECHNIQUE: Helically acquired images were obtained of the abdomen and pelvis after IV contrast. A radiation dose optimization technique was used for this scan. IV Contrast dosage and agent: IV 100mL [id number]-300 Oral contrast: None. COMPARISON: 02/20/2019. FINDINGS: Visualized lung bases: Unremarkable Liver: Unremarkable Gallbladder: Surgically absent. Spleen: Unremarkable Pancreas: Unremarkable Adrenal Glands: Unremarkable Kidneys: Unremarkable Vasculature: Mild scattered aortoiliac atherosclerotic calcifications. GI Tract: There is fluid-filled dilatation of the proximal small bowel measuring up to 4 cm in diameter. There is no clear transition point, however the distal small bowel gradually tapers down near the mid ileum. No free air or free fluid. Scattered colonic diverticula. Lymphadenopathy: None Peritoneum: No ascites. Bladder: Unremarkable Reproductive organs: Unremarkable Bones/Soft tissues: Mild scattered degenerative changes of the visualized spine. Small umbilical fat-containing hernia. Small right fat-containing inguinal hernia. CT/Abdomen/Pelvis W IV Cont ONLY IMPRESSION: Findings concerning for small bowel obstruction with no clear transition point, however the distal small bowel gradually tapers down near the mid ileum. Electronically Signed: Frankie Bryant MD at 17:56 EST Tel , Service support ,
[2021-10-19 16:45] LABS: Anion Gap 8 (5-15); BUN 21 mg/dL (7-18); BUN/Creat Ratio 14.7 RATIO (10-20); Chloride 106 mmol/L (98-107); Creatinine, Serum 1.43 mg/dL (0.70-1.30); EST Glomerular Filtration Rate 52 mL/min (>60); Est Glom Filt Rate - Afr Amer 63 mL/min (>60); Estimated Creatinine Clearance 48.92 ml/min; Glucose 148 mg/dL (74-106); Hemoglobin 18.2 g/dL (13.0-16.5); Sodium Level 141 mmol/L (136-145)
[2021-10-19 16:46] LABS: Differential Indicated SCAN CRITERIA MET
[2021-10-19] MEDS: Ondansetron 4 MG/2 ML Vial IV ×2 (17:20→20:43)
--- NOTE | 2021-10-19 18:07 | ED.VIS.GI ---
HPI HPI - GI History of Present Illness Chief Complaint: Nausea/Vomiting Detail of Chief Complaint: Johnathan distention, nausea vomiting Informant: patient and spouse/S.O. Abdominal Pain/Flank Pain Onset: Today (Vomited 10 times since midnight) and Yesterday Context: Sudden Onset Timing: Continuous and Waxes and wanes Quality: Aching Location: Diffuse Current Severity: Mild Maximum Severity: Moderate Worsened by: Nothing Relieved by: Nothing Nausea/Vomiting/Emesis GI Symptom: Positive for Nausea and Vomiting Onset: Today Episodes: 10 Diarrhea/Melena/Hematochezia GI Symptom: Negative for Diarrhea, Melena and Hematochezia Associated Symptoms Associated Symptoms: Negative for Dysuria, Frequency, Hematuria and Urgency Narrative Narrative: Of cholelithiasis September 17, [address] José Miguel Batista. Patient has remote history of partial small bowel obstruction. He states the obstruction resolved after placement of NG. He denies fever, chills night sweats. Denies headache, visual, ocular auditory symptoms. Denies cardiac respiratory symptoms. He denies symptoms. He is not been passing gas this afternoon. He does report abdominal distention. He reports emesis x10 since midnight. There is no blood or coffee grounds in the emesis.Patient is a 71-year-old male Prior similar symptoms: Yes Recent Illness/Hospitalization: Yes PFSH PFS Medical History Abdominal pain, acute, right upper quadrant Anxiety Back pain Cancer Former smoker Gallstones without obstruction of gallbladder Gastric reflux Heartburn Hernia High cholesterol History of echocardiogram History of irregular heartbeat History of stress test History of ulceration Hoarseness Hypertension Injury of back Meniscus degeneration Prostate disease Tonsil and adenoid disease, chronic Wears glasses Home Medications hydrochlorothiazide 12.5 mg DAILY 02/20/19 [History Last Taken Unknown] amlodipine 5 mg PO DAILY 09/15/21 [History Last Taken Unknown] aspirin 81 mg capsule 81 mg PO DAILY 09/17/21 [History Last Taken Unknown] omeprazole 40 mg capsule,delayed release 40 mg PO DAILY #90 cap 09/17/21 [Rx Last Taken Unknown] ezetimibe 10 mg PO DAILY 10/19/21 [History Last Taken Unknown] Allergy/AdvReac Type Severity Reaction Status Date / Time [id number] Reductase Allergy Unknown unknown Verified 10/19/21 14:34 Inhibitor [Sejdavg-Rnq-Fsu Reductase Inhibitor] COUGH MEDICINE AdvReac Other Uncoded 10/19/21 14:34 Family History Brother Arthritis Father Arthritis Hypertension High cholesterol Mother Hypertension High cholesterol Surgical History History of hernia repair History of laparoscopic cholecystectomy History of tonsillectomy Social History adopted: No household members: spouse housing: house number of children: 2 current occupational status: retired current occupational exposures/hazards: No pets and animals: No sexually active: Yes Smoking Status: Former smoker Tobacco: How many years used: 25 alcohol intake: current substance use type: does not use well-balanced diet: daily or most days caffeine: Yes eating out: 1-3 times/week during the past year weight has: remained stable what type of physical activity do you participate in: walking and additional frequency: 3-4 times per week duration: 60-90 minutes/day viviana/hinduism: Episcopal seatbelt use: always do you feel safe at home: Yes ROS ROS ED Constitutional Constitutional ED: Denies chills, fever(s), subjective or sweats ENT ENT ED: Denies ear pain, rhinorrhea or sore throat Cardiovascular Cardiovascular: Denies chest pain, orthopnea, palpitations, paroxysmal nocturnal dyspnea or racing heartbeat Respiratory/Chest Respiratory/Chest: Denies cough, dyspnea, dyspnea on exertion, orthopnea, paroxysmal nocturnal dyspnea or sputum Gastrointestinal Gastrointestinal: Reports abdominal pain, nausea and vomiting; Denies constipation, diarrhea or melena Genitourinary Genitourinary ED: Denies dysuria, hematuria or urinary frequency Musculoskeletal Musculoskeletal: Denies arthralgias, back pain, myalgias or neck pain Integumentary Denies abscess, Abrasions or rash Neurologic Neurologic: Reports weakness; Denies headache(s) or paresthesias Psychiatric Psychiatric: Denies anxiety or depression EXAM Physical Exam Const Vital Signs: 10/19/21 14:34 Temperature 98.1 F Temperature Source Oral Pulse Rate 117 H Respiratory Rate 18 Blood Pressure 131/74 H Blood Pressure Mean 93 Pulse Ox 95 Oxygen Delivery Method Room Air Positive well nourished, well developed and obese; Negative for cachectic, contractures or unkempt General Appearance ED: well developed; Negative for unkempt, cachectic, contractures, NAD or pallor Nutritional Appearance: obese; Negative for cachectic HEENT Reports TM's clear and dry mucous membranes normocephalic and atraumatic Tympanic Membrane ED: Yes TM's clear Mouth ED: Yes dry mucous membranes Mouth: dry mucous membranes Eyes PERRL and EOMs intact bilaterally General Eye ED: Negative for pale conjunctiva or scleral icterus Neck no lymphadenopathy, supple and no JVD Resp normal respiratory effort and clear to auscultation bilaterally Cardio regular rhythm, S1 normal heart sound, S2 normal heart sound and no murmurs Rate: tachycardic GI no masses; Negative for non-tender or non-distended Inspection: abdominal distention Auscultation: hypoactive bowel sounds; Negative for normoactive bowel sounds Palpation: soft and tender; Negative for guarding, rigid or rebound tenderness present Back/Spine no CVA tenderness Cervical Spine: Negative for cervical spine tenderness Thoracic Spine / Upper Back: Negative for thoracic spinal tenderness Lumbar Spine / Lower Back: Negative for lumbar spinal tenderness Extremity full ROM General Extremety ED: Yes edema General Extremity: edema Neuro CN's II-XII intact bilaterally, moves all extremities and no sensory deficits noted Sensorium / Orientation: alert, oriented to person, oriented to place and oriented to time Motor Exam: strength 5/5 throughout Psych mental status grossly normal Appearance: Negative for unkempt Skin no wounds General Skin Exam: Negative for jaundice or pallor Lesions: no lesions Rashes: no rashes MDM MDM MDM Narrative Medical decision making narrative: In light of recent surgery distention and no flatus vomiting 10 times concern patient has partial versus complete bowel obstruction. CT was obtained as well as appropriate blood work. CT does reveal partial small bowel obstruction. NG was ordered. Case discussed with Dr. Smith requested admission to medicine. Spoke to hospitalist. She asked if Dr. Smith with admit since she is had 12 admissions since 1. Lab Data Attestation: I reviewed the patient's lab results. Labs: Laboratory Results - last 24 hr 10/19/21 10/19/21 16:19 16:19 WBC 13.9 H RBC 6.02 Hgb 18.2 H* Hct 52.4 MCV 87.0 MCH 30.2 MCHC 34.7 RDW Std Deviation 41.2 RDW Coeff of Christos 13.2 Plt Count 268 MPV 9.5 Immature Gran % (Auto) 0.300 Neut % (Auto) 89.9 H Lymph % (Auto) 5.0 L [place] % (Auto) 4.7 Eos % (Auto) 0.0 Baso % (Auto) 0.1 Absolute Neuts (auto) 12.5 H Absolute Lymphs (auto) 0.69 L Nucleated RBC % 0 Diff Path Review May foll Sodium 141 Potassium 4.0 Chloride 106 Carbon Dioxide 27.0 Anion Gap 8 BUN 21 H Creatinine 1.43 H Estim Creat Clear Calc 48.92 Est GFR (MDRD) Af Amer 63 Est GFR (MDRD) Non-Af 52 L BUN/Creatinine Ratio 14.7 Glucose 148 H Calcium 10.0 Radiography Diagnostic Testing: Clinical Impression(s) from Imaging Studies Abdomen/Pelvis CT 10/19/21 16:44 IMPRESSION: Findings concerning for small bowel obstruction with no clear transition point, however the distal small bowel gradually tapers down near the mid ileum. Electronically Signed: Frankie Bryant MD at 17:56 EST Tel , Service support , Discharge Plan Triage Chief Complaint: Nausea/Vomiting ED Provider: Jarvis Deal Dx/Rx/DC Orders Clinical Impression: Partial obstruction of small intestine, Nausea & vomiting, Acute dehydration, Sinus tachycardia Prescriptions: No Action aspirin 81 mg capsule 81 mg PO DAILY RF: 0 omeprazole 40 mg capsule,delayed release(DR/EC) 40 mg PO DAILY Qty: 90 RF: 3 hydrochlorothiazide 12.5 MG capsule 12.5 mg DAILY RF: 0 amlodipine 5 mg Tablet 5 mg PO DAILY RF: 0 ezetimibe 10 mg tablet 10 mg PO DAILY RF: 0 Primary Care Provider: Osvaldo Garcia Referrals: Osvaldo Garcia MD [Primary Care Provider] -
[2021-10-19] MEDS: Lidocaine 4% 5 ML Ampul 2 ML INHALATION (18:22)
[2021-10-19 18:33] VITALS: PULSE 78; RESP 16
--- NOTE | 2021-10-19 18:37 | CON.PCM.SX_ITS ---
Assessment & Plan Assessment/Plan (1) Partial obstruction of small intestine: PLAN: Patient is going to be admitted to the hospital. NG tube will be placed aggressive IV hydration. He does not have a surgical abdomen and I have a feeling that once we get him well-hydrated we will noticed that the partial small bowel obstruction should hopefully resolve with medical management only. (2) Nausea & vomiting: QUALIFIERS: Vomiting type: unspecified Qualified Code(s): R11.2 - Nausea with vomiting, unspecified (3) Acute dehydration: HPI Consult Data Date of Consult: 10/19/21 HPI Narrative HPI Narrative: COLT HURT, is a 71 M who presents left-sided abdominal pain. Started last night he has vomited at least 10 times since last night and today. Patient has remote history of partial small bowel obstruction. He states the obstruction resolved after placement of NG. He denies fever, chills night sweats. Denies headache, visual, ocular auditory symptoms. Denies cardiac respiratory symptoms. He denies symptoms. He is not been passing gas this afternoon. He does report abdominal distention. He reports emesis x10 since midnight. There is no blood or coffee grounds in the emesis. When the emergency department he was noted to have a slightly elevated white cou nt CT scan which showed dilated loops of small bowel air throughout the colon as well as stool no obvious transition point was identified. Since being in the emergency department he has gotten some antiemetics and his abdominal pain has resolved. [facility] Medical History Abdominal pain, acute, right upper quadrant Anxiety Back pain Cancer Former smoker Gallstones without obstruction of gallbladder Gastric reflux Heartburn Hernia High cholesterol History of echocardiogram History of irregular heartbeat History of stress test History of ulceration Hoarseness Hypertension Injury of back Meniscus degeneration Prostate disease Tonsil and adenoid disease, chronic Wears glasses Home Medications hydrochlorothiazide 12.5 mg DAILY 02/20/19 [History Last Taken Unknown] amlodipine 5 mg PO DAILY 09/15/21 [History Last Taken Unknown] aspirin 81 mg capsule 81 mg PO DAILY 09/17/21 [History Last Taken Unknown] omeprazole 40 mg capsule,delayed release 40 mg PO DAILY #90 cap 09/17/21 [Rx Last Taken Unknown] ezetimibe 10 mg PO DAILY 10/19/21 [History Last Taken Unknown] Allergy/AdvReac Type Severity Reaction Status Date / Time [id number]-OTI-InB Reductase Allergy Unknown unknown Verified 10/19/21 14:34 Inhibitor [Wpdypvc-Azv-Sex Reductase Inhibitor] COUGH MEDICINE AdvReac Other Uncoded 10/19/21 14:34 Family History Brother Arthritis Father Arthritis Hypertension High cholesterol Mother Hypertension High cholesterol Surgical History History of hernia repair History of laparoscopic cholecystectomy History of tonsillectomy Social History adopted: No household members: spouse housing: house number of children: 2 current occupational status: retired current occupational exposures/hazards: No pets and animals: No sexually active: Yes Smoking Status: Former smoker Tobacco: How many years used: 25 alcohol intake: current substance use type: does not use well-balanced diet: daily or most days caffeine: Yes eating out: 1-3 times/week during the past year weight has: remained stable what type of physical activity do you participate in: walking and additional frequency: 3-4 times per week duration: 60-90 minutes/day viviana/voodoo: Quaker seatbelt use: always do you feel safe at home: Yes ROS Constitutional Constitutional: Reports fatigue; Denies chills or fever(s) Cardiovascular Cardiovascular: Denies chest pain, chest pain with activity, dyspnea or palpitations Respiratory/Chest Respiratory/Chest: Denies cough or dyspnea Gastrointestinal Gastrointestinal: Reports abdominal pain, nausea and vomiting; Denies diarrhea or hematemesis Genitourinary Genitourinary: Denies change in urinary stream Physical Exam Const alert, oriented x3 and no apparent distress General Appearance: cooperative HEENT normocephalic and head/scalp atraumatic Eyes PERRL and EOMs intact bilaterally Resp clear to auscultation bilaterally Cardio Rate: regular rate Rhythm: regular rhythm GI soft to palpation and non-tender Auscultation: hypoactive bowel sounds Palpation: Negative for guarding Lab / Micro Data Result Diagrams: 10/19/21 16:19 10/19/21 16:19 Labs: Laboratory Results - last 24 hr 10/19/21 16:19: WBC 13.9 H, RBC 6.02, Hgb 18.2 H*, Hct 52.4, MCV 87.0, MCH 30.2, MCHC 34.7, RDW Std Deviation 41.2, RDW Coeff of Christos 13.2, Plt Count 268, MPV 9.5, Immature Gran % (Auto) 0.300, Neut % (Auto) 89.9 H, Lymph % (Auto) 5.0 L, [place] % (Auto) 4.7, Eos % (Auto) 0.0, Baso % (Auto) 0.1, Absolute Neuts (auto) 12.5 H, Absolute Lymphs (auto) 0.69 L, Nucleated RBC % 0, Diff Path Review March10/19/21 16:19: Sodium 141, Potassium 4.0, Chloride 106, Carbon Dioxide 27.0, Anion Gap 8, BUN 21 H, Creatinine 1.43 H, Estim Creat Clear Calc 48.92, Est GFR (MDRD) Af Amer 63, Est GFR (MDRD) Non-Af 52 L, BUN/Creatinine Ratio 14.7, Glucose 148 H, Calcium 10.0 Radiology Impression Abdomen/Pelvis CT 10/19/21 16:44 IMPRESSION: Findings concerning for small bowel obstruction with no clear transition point, however the distal small bowel gradually tapers down near the mid ileum. Electronically Signed: Frankie Bryant MD at 17:56 EST Tel , Service support ,
--- NOTE | 2021-10-19 18:42 | RAD_ITS ---
STUDY: X-RAY - ABDOMEN/PELVIS REASON FOR EXAM: Male, 71 years old. NG Insertion TECHNIQUE: KUB COMPARISON: None. FINDINGS: Lung bases are clear. Nasogastric tube terminates in the distal esophagus. Multiple dilated gas-filled loops of small bowel measuring up to 4 cm. There is no organomegaly. No abnormal calcifications. Soft tissues and bony structures are unremarkable. RAD/Abdomen Single View (Portable) IMPRESSION: SBO. NG tube terminates in the distal esophagus. This should be advanced. Electronically Signed: Jayleen Lutz MD at 20:03 EST Tel , Service support ,
--- NOTE | 2021-10-19 19:05 | RAD_ITS ---
STUDY: X-RAY - ABDOMEN/PELVIS REASON FOR EXAM: Male, 71 years old. NG PLACEMENT #2 TECHNIQUE: KUB COMPARISON: 6:42 PM. FINDINGS: Lung bases are clear. NG tube terminates in the stomach. Multiple dilated small bowel loops. There is no organomegaly. No abnormal calcifications. Soft tissues and bony structures are unremarkable. RAD/Abdomen Single View (Portable) IMPRESSION: SBO with NG tube in the stomach. Electronically Signed: Jayleen Lutz MD at 20:09 EST Tel , Service support ,
--- NOTE | 2021-10-19 19:13 | ED.RN ---
Size 16 NG tube passed and confirmed by aspiration of gastric contents. Tube was not in stomach on xray confirmation, attempted to advance tube but patient did not tolerate well. New NG tube placed successful, patient continues to feel something stuck in throat but denies dyspnea and continues to cough.
[2021-10-19 19:29] LABS: Bacteria 0 SEEN /hpf (None Seen); Red Blood Cells-Urine 0 SEEN /hpf (0-5); Squamous Epithelial Cells - UA 0 SEEN /hpf (0-5)
[2021-10-19 19:32] LABS: Color, Urine Amber (Yellow); Glucose, Dipstick Normal (Normal); Ketone-Dipstick 15 mg/dl (Negative); Leukocyte Esterase-Dipstick 25 /ul (Negative); Nitrite-Dipstick Positive (Negative); Occult Blood-Urine 10 /ul (Negative); Protein-Dipstick 30 mg/dl (Negative); Urine Clarity Clear (Clear); Urine Urobilinogen 1 mg/dl (Normal)
[2021-10-19 19:36] LABS: Urine Bilirubin Dipstick 1 mg/dL (Negative)
[2021-10-19 19:39] LABS: Mucous, Urine 3+ /hpf (<or=2+); White Blood Cells 0-5 SEEN /hpf (0-5)
[2021-10-19 20:00] VITALS: BP 130/78; PULSE 64; RESP 16
[2021-10-19 20:14] VITALS: BP 130/78; PULSE 68; RESP 16; TEMP 36.7
[2021-10-19] MEDS: Lactated Ringers 1,000 ML 90 ML IV (21:09)
[2021-10-19 21:13] VITALS: BMI 30.2
--- NOTE | 2021-10-20 02:42 | PCS.PANDOC ---
PANDEMIC DOCUMENTATION INITIATED: Date: 10/19/2021 Time: 2112
[2021-10-20 03:45] VITALS: BP 119/81; PULSE 60; RESP 21; TEMP 36.6; O2SAT 97
--- NOTE | 2021-10-20 05:32 | RAD_ITS ---
STUDY: GASTROGRAFIN SMALL BOWEL FOLLOW-THROUGH EXAMINATION. REASON FOR EXAM: Male, 71 years old. sbo -- Gastrografin, small bowel obstruction protocol, TECHNIQUE: A barrel loader and cleaner film was obtained. Following this, contrast was introduced into the indwelling nasogastric tube. A small bowel follow-through examination was then obtained. COMPARISON: None. FINDINGS: On the barrel loader and cleaner film, there is evidence of small bowel dilatation. Gas is seen within the colon. There is evidence of a small bowel dilatation down to the region of the colon. The colon is opacified at 150 minutes following the introduction of GASTROGRAFIN. Findings are in keeping with either a partial small bowel obstruction versus an ileus pattern. RAD/Small Bowel Series Only IMPRESSION: Delayed transit through the dilated small bowel loops suggestive of either partial incomplete small bowel obstruction versus an ileus pattern. Electronically Signed: Quique Rosales MD at 11:12 EST , Service support ,
--- NOTE | 2021-10-20 05:37 | PCM.PN.SRG ---
Subjective Subjective 1 month ago I performed a laparoscopic cholecystectomy with cholangiograms on this patient. Prior to that he had presented with abdominal pain nausea and vomiting. It was suspected that he had symptomatic biliary disease. He now comes to light that in 2018 he had undergone an extensive work-up for abdominal pain. This included March 2019 combined upper and lower endoscopy done by Dr. Javed Verdugo. A sessile serrated polyp of the cecum was removed. Diverticulosis was identified. No acute inflammation. The upper endoscopy showed some mild gastritis and esophagitis. The patient states that a precise etiology of the patient's abdominal pain was not determined. The patient states that his abdominal pain on presentation now is very similar to the abdominal pain that he had with his emergency room admission prior to our laparoscopic cholecystectomy. He states he is not having abdominal pain at the moment. He states that he can feel bowel activity. He has not had any flatus or stool since yesterday morning. He is very uncomfortable with the NG tube. Objective Data Objective Data Vital Signs: Vital Signs Temp Pulse Resp BP Pulse Ox 97.9 F 60 21 H 119/81 H 97 10/20/21 03:45 10/20/21 03:45 10/20/21 03:45 10/20/21 03:45 10/20/21 03:45 Oxygen Delivery Method Room Air Weight: 210 lb 5.136 oz Body Mass Index (BMI) 30.2 Lab / Micro Data Result Diagrams: 10/19/21 16:19 10/19/21 16:19 Labs: Laboratory Results - last 24 hr 10/19/21 16:19: WBC 13.9 H, RBC 6.02, Hgb 18.2 H*, Hct 52.4, MCV 87.0, MCH 30.2, MCHC 34.7, RDW Std Deviation 41.2, RDW Coeff of Christos 13.2, Plt Count 268, MPV 9.5, Immature Gran % (Auto) 0.300, Neut % (Auto) 89.9 H, Lymph % (Auto) 5.0 L, [place] % (Auto) 4.7, Eos % (Auto) 0.0, Baso % (Auto) 0.1, Absolute Neuts (auto) 12.5 H, Absolute Lymphs (auto) 0.69 L, Nucleated RBC % 0, Diff Path Review March10/19/21 16:19: Sodium 141, Potassium 4.0, Chloride 106, Carbon Dioxide 27.0, Anion Gap 8, BUN 21 H, Creatinine 1.43 H, Estim Creat Clear Calc 48.92, Est GFR (MDRD) Af Amer 63, Est GFR (MDRD) Non-Af 52 L, BUN/Creatinine Ratio 14.7, Glucose 148 H, Calcium 10.0 10/19/21 19:23: Urine Color Poppy, Urine Clarity Clear, Urine pH 5.0, Ur Specific [place] 1.020, Urine Protein 30 H, Urine Glucose (UA) Normal, Urine Ketones 15 H, Urine Occult Blood 10 H, Urine Nitrite Positive H, Urine Bilirubin 1 H, Urine Urobilinogen 1 H, Ur Leukocyte Esterase 25 H, Urine RBC 0 SEEN, Urine WBC 0-5 SEEN, Ur Squamous Epith Cells 0 SEEN, Urine Bacteria 0 SEEN, Urine Mucus 3+ Radiography Diagnostic Testing: Radiology Impression Abdomen/Pelvis CT 10/19/21 16:44 IMPRESSION: Findings concerning for small bowel obstruction with no clear transition point, however the distal small bowel gradually tapers down near the mid ileum. Electronically Signed: Farnkie Bryant MD at 17:56 EST Tel , Service support , KUB X-Ray 10/19/21 18:42 IMPRESSION: SBO. NG tube terminates in the distal esophagus. This should be advanced. Electronically Signed: Jayleen Lutz MD at 20:03 EST Tel , Service support , KUB X-Ray 10/19/21 19:05 IMPRESSION: SBO with NG tube in the stomach. Electronically Signed: Jayleen Lutz MD at 20:09 EST Tel , Service support , Physical Exam Narrative NG tube dangling free, clearly causing voice disruption and throat irritation Const no apparent distress Resp normal respiratory effort Resp Narrative: Clear bilateral except diminished in the bases. Cardio regular rate and regular rhythm GI GI Narrative: Soft, nontender, nicely healed transverse supraumbilical incision and laparoscopic incisions. Well-healed left groin incision. No focal mass no guarding no rebound. Bowel sounds present and nonspecific Extremity General Extremity: Negative for calf tenderness Assessment & Plan Assessment/Plan (1) Partial obstruction of small intestine: (2) Nausea & vomiting: QUALIFIERS: Vomiting type: unspecified Qualified Code(s): R11.2 - Nausea with vomiting, unspecified (3) Acute dehydration: PLAN: 71-year-old gentleman. 2019 he underwent evaluation for abdominal pain with no clear finding. Recently he presented with apparently exact same symptoms and it was thought that he had symptomatic biliary tract disease and I performed a laparoscopic cholecystectomy and cholangiograms. He now returns claiming that these were the exact same symptoms he had prior to his performing the gallbladder. He eventually states that he has a younger brother who required an abdominal exploration for what sounds like small bowel obstruction and adhesions We will continue his hydration increase his IV fluids and provide an IV bolus. We will initiate incentive spirometry and encourage its use. I will initiate Lovenox DVT prophylaxis as well. I will check laboratory this morning. We will obtain a Gastrografin small bowel follow-through. We will mobilize and ambulate the patient as soon as possible. I would hope and anticipate spontaneous resolution. The patient is aware that if required laparoscopic exploration may be indicated.
[2021-10-20] MEDS: Lactated Ringers 1,000 ML 125 ML IV ×3 (05:49→22:09)
[2021-10-20] MEDS: Enoxaparin 40 MG/0.4 ML Syringe SC (05:55)
[2021-10-20 06:02] LABS: Absolute Lymphocyte Count 1.14 X10^3/uL (0.83-4.51); Absolute Neutrophil Count 6.7 X10^3/uL (2.0-7.7); Basophil# 0.02 X10^3/uL; Basophil% 0.2 % (0-1); Eosinophil# 0.05 X10^3/uL; Eosinophils% 0.6 % (0-5); Hematocrit 48.8 % (40-54); Hemoglobin 16.5 g/dL (13.0-16.5); Lymphocyte # 1.14 X10^3/ul (0.83-4.51); Lymphocyte % 13.3 % (19-41); Mean Corp Hgb Conc 33.8 g/dL (32-36); Mean Corpuscular Hgb 30.2 pg (27.0-32.0); Mean Corpuscular Volume 89.2 fL (80-94); Mean Platelet Vol. 9.8 fl (6.2-12.0); Monocyte# 0.66 X10^3/uL; Monocyte% 7.7 % (0-10); NRBC Flagged by Analyzer 0 % (0-5); Neutrophil # 6.69 X10^3/uL (2.7-7.7); Neutrophil % 78.1 % (47-70); Platelet Count 242 K/mm3 (150-450); RBC Distribution Width CV 13.3 % (11.6-14.6); RBC Distribution Width SD 43.3 fl (35.1-43.9); Red Blood Count 5.47 M/mm3 (4.6-6.2); White Blood Count 8.6 K/mm3 (4.4-11.0)
[2021-10-20 06:34] LABS: ALB/GLOB Ratio 1.4 RATIO (0.9-2.4); AST(SGOT) 28 U/L (15-37); Alanine Aminotransfer ALT/SGPT 52 U/L (16-61); Albumin, Serum 3.8 g/dL (3.2-5.0); Alkaline Phosphatase 67 U/L (45-117); Anion Gap 6 (5-15); BUN 25 mg/dL (7-18); BUN/Creat Ratio 19.5 RATIO (10-20); Calcium,Total 9.3 mg/dL (8.5-10.1); Chloride 108 mmol/L (98-107); Creatinine, Serum 1.28 mg/dL (0.70-1.30); EST Glomerular Filtration Rate 59 mL/min (>60); Est Glom Filt Rate - Afr Amer 71 mL/min (>60); Estimated Creatinine Clearance 54.65 ml/min; Globulin 2.7 g/dL (2.2-4.2); Glucose 129 mg/dL (74-106); Potassium 3.7 mmol/L (3.5-5.1); Protein, Total 6.5 g/dL (6.4-8.2); Sodium Level 143 mmol/L (136-145)
[2021-10-20] MEDS: Ondansetron 4 MG/2 ML Vial IV (07:51)
--- NOTE | 2021-10-20 07:58 | NURSING ---
PT TO RADIOLOGY FOR SMALL BOWEL SERIES.
[2021-10-20] MEDS: proMETHazine 25 MG/ML Syringe 12.5 MG IM (11:36)
--- NOTE | 2021-10-20 11:38 | NURSING ---
PT IN RADIOLOGY FOR SB SERIES. C/O NAUSEA. PHENERGAN GIVEN PER ORDER. PT AND BOTH DENY ADDITIONAL NEEDS. PT RESTING ON XRAY TABLE.
[2021-10-20 12:15] VITALS: BP 137/84; PULSE 82; RESP 18; TEMP 36.9; O2SAT 93
[2021-10-20 13:27] LABS: Pathologist Review Reviewed
[2021-10-20 14:29] VITALS: BP 125/81; PULSE 86; RESP 18; TEMP 36.8; O2SAT 94
--- NOTE | 2021-10-20 14:33 | NURSING ---
Pt states he feels the NG tube is coiled in his neck. This nurse assessed pt and assured pt it was not. Pt said it felt like that since yesterday. This nurse called and spoke with Dr. Batista and informed him of this. Ordered a single view at this time.
[2021-10-20] MEDS: BENZOCAINE/MENTHOL 1 LOZENGE 2 LOZENGE MUCOUS MEM ×2 (14:37→20:02)
--- NOTE | 2021-10-20 14:45 | RAD_ITS ---
STUDY: X-RAY - CERVICAL SPINE REASON FOR EXAM: Male, 71 years old. pt. feels like NG TUBE is coiled in his neck TECHNIQUE: Single frontal view(s) of the cervical spine were obtained. COMPARISON: None FINDINGS: The nasogastric tube is seen within the esophagus. RAD/Spine 1 View Any Level IMPRESSION: The nasogastric tube is not coiled. Electronically Signed: Quique Rosales MD at 15:09 EST , Service support ,
[2021-10-20 17:45] VITALS: BP 135/85; PULSE 88; RESP 18; TEMP 36.9; O2SAT 94
[2021-10-20 22:02] VITALS: BP 133/79; PULSE 72; RESP 16; TEMP 37.1; O2SAT 96
[2021-10-21 04:02] VITALS: BP 129/70; PULSE 64; RESP 16; TEMP 36.7; O2SAT 96
--- NOTE | 2021-10-21 05:53 | PCM.PN.SRG ---
Subjective Subjective I had the NG tube removed last night. The patient still has a sore throat and voice loss. He has had no nausea or vomiting overnight. He denies any abdominal pain. He does not believe that he is any more less distended. He had several diarrheal stools after the Gastrografin small bowel follow-through. He has not had any particular flatus or stool however overnight. Objective Data Objective Data Vital Signs: Vital Signs Temp Pulse Resp BP Pulse Ox 98.0 F 64 16 129/70 H 96 10/21/21 04:02 10/21/21 04:02 10/21/21 04:02 10/21/21 04:02 10/21/21 04:02 Oxygen Delivery Method Room Air Weight: 210 lb 5.136 oz Body Mass Index (BMI) 30.2 Intake & Output: Intake and Output for Last 24 Hours 10/19/21 10/20/21 10/21/21 23:59 23:59 23:59 Intake Total 2829.17 / 2879.17 50 / 50 Output Total 700 / 700 Balance 2129.17 / 2179.17 50 / 50 Lab / Micro Data Result Diagrams: 10/20/21 05:35 10/20/21 05:35 Labs: Laboratory Results - last 24 hr 10/19/21 16:19: Diff Path Review Reviewed 10/20/21 05:35: WBC 8.6, RBC 5.47, Hgb 16.5, Hct 48.8, MCV 89.2, MCH 30.2, MCHC 33.8, RDW Std Deviation 43.3, RDW Coeff of Christos 13.3, Plt Count 242, MPV 9.8, Immature Gran % (Auto) 0.100, Neut % (Auto) 78.1 H, Lymph % (Auto) 13.3 L, [place] % (Auto) 7.7, Eos % (Auto) 0.6, Baso % (Auto) 0.2, Absolute Neuts (auto) 6.7, Absolute Lymphs (auto) 1.14, Nucleated RBC % 0 10/20/21 05:35: Sodium 143, Potassium 3.7, Chloride 108 H, Carbon Dioxide 29.0, Anion Gap 6, BUN 25 H, Creatinine 1.28, Estim Creat Clear Calc 54.65, Est GFR (MDRD) Af Amer 71, Est GFR (MDRD) Non-Af 59 L, BUN/Creatinine Ratio 19.5, Glucose 129 H, Calcium 9.3, Total Bilirubin 1.10 H, AST 28, ALT 52, Alkaline Phosphatase 67, Total Protein 6.5, Albumin 3.8, Globulin 2.7, Albumin/Globulin Ratio 1.4 Radiography Diagnostic Testing: Radiology Impression Small Bowel X-Ray 10/20/21 05:32 IMPRESSION: Delayed transit through the dilated small bowel loops suggestive of either partial incomplete small bowel obstruction versus an ileus pattern. Electronically Signed: Quique Rosales MD at 11:12 EST , Service support , Physical Exam GI GI Narrative: Soft, slightly distended, bowel sounds present somewhat hyperactive, no focal tenderness, no mass, no rebound Assessment & Plan Assessment/Plan (1) Partial obstruction of small intestine: PLAN: Differential diagnosis includes partial small bowel obstruction versus ileus. I am leaning toward the diagnosis of partial small bowel obstruction. Clinically he appears to be improved. He has tolerated removal of the NG tube overnight. I will initiate clear liquids and then advance to full liquids. If he tolerates that then I anticipate discharge. I additional then dissipate surgical follow-up. Pending his progress as an outpatient may well consider a barium small bowel follow-through for better definition. The patient recants that this is what he had an extensive work-up for back in 2019. We have still not identified the precise etiology. I did briefly discuss potential for diagnostic laparoscopy. In this time of Covid crisis however we would not be able to schedule that electively. José Miguel Batista M.D., F.A.C.S.
[2021-10-21] MEDS: Lactated Ringers 1,000 ML 125 ML IV (06:31)
[2021-10-21] MEDS: Enoxaparin 40 MG/0.4 ML Syringe SC (06:32)
[2021-10-21 07:38] VITALS: BP 135/85; PULSE 87; RESP 18; TEMP 36.8; O2SAT 96
[2021-10-21] MEDS: Ezetimibe 10 MG Tablet PO (09:50)
[2021-10-21] MEDS: hydroCHLOROthiazide 12.5mg 12.5 MG PO (09:50)
[2021-10-21] MEDS: amLODIPine 5 MG Tablet PO (09:50)
--- NOTE | 2021-10-21 12:18 | CASEMGMT ---
GARRETT CORNEJO Assessment: Face to Face with pt for initial transition planning/care coordination assessment. RN CM introduced self and role at [facility], pt voices understanding and consents to assessment. Pt is A/O x4 and answers all questions appropriately at this time. Pt sitting up in bed in no distress with at bedside. Care providers, pharmacy, and demographics verified/updated. Admitting Dx: Partial SBO PCP:Jose Specialists:Alireza, surgeon Preferred Pharmacy: [facility] Retail Insurance: [employer] Prescription Benefit: yes LW/HPOA: Pt reports he has a LW/DPOA and his is his DPOA, Davon Lainez. He is aware this is not on file at [facility] and may bring in to be scanned into his chart. LNOK: Davon Lainez, Living Arrangements: Pt lives with in a single story house with 3 steps to enter with a rail. Pt reports he was I in ADL's and denies concerns at home. Transportation: Pt drives self and denies concerns with transportation. DME/HHC/SNF: Pt has crutches at home but no other DME. Pt denies hx of HHC or SNF stays. Pt states no concerns with going home at time of dc and is anxious to be dc'd. Pt states no further concerns/needs. CM to follow. Advised pt to ask CM if any further question/concerns/needs arise, voices understanding. Pt Goal: Home Plan: Home
[2021-10-21 13:27] VITALS: BP 124/81; PULSE 75; RESP 18; TEMP 36.8; O2SAT 96
--- NOTE | 2021-10-21 13:59 | PCM.DC ---
Discharge Instructions Diet Discharge Diet: Soft diet (For 1 week upon discharge and then advance slowly back to normal) Activity Discharge Activity: Return to Normal Activity Follow Up Care Please Follow Up With: José Miguel Batista MD When: 2 weeks. Please call our office for an appointment. Test Results: Test results from this visit will be discussed in further detail at your follow-up appointment, if applicable. Discharge Plan Admission Admit Date/Time: 10/20/21 16:02 Primary Reason for Your Visit: Small bowel obstruction Attending Provider: José Miguel Batista Primary Care Provider: Osvaldo Garcia Consulting Providers: Ev Saul ; Marycruz Carroll ; Lalit Koenig ; Quinton Dumas ; Jah Laguna ; Mayra Bolanos ; Bakari Ocasio ; Joe Ramirez ; Zack Saleh ; Margaret Alvarado ; Chirag Martinez ; Huyen Camacho ; Jose Dos Santos ; Doug Boyle ; Imer Goldstein ; Galo Law ; Liz Dela Cruz ; Leydi Santiago NP ; Michelle Vega ; Mindy Petty Discharge Orders/Prescriptions Prescriptions: Continued aspirin 81 mg capsule 81 mg PO DAILY RF: 0 omeprazole 40 mg capsule,delayed release(DR/EC) 40 mg PO DAILY Qty: 90 RF: 3 hydrochlorothiazide 12.5 MG capsule 12.5 mg DAILY RF: 0 amlodipine 5 mg Tablet 5 mg PO DAILY RF: 0 ezetimibe 10 mg tablet 10 mg PO DAILY RF: 0 Referrals / Follow Up: José Miguel Batista MD [STAFF PHYSICIAN] - 11/04/21 (Please call to schedule an appointment for follow-up. ) Osvaldo Garcia MD [Primary Care Provider] - Disposition Disposition (needs filled in before D/C Order can be placed): Home, Self Care
--- NOTE | 2021-10-21 14:04 | DS.PCM_ITS ---
Providers Date of Admission: 10/20/21 Primary Care Physician: Osvaldo Garcia MD Consultations 10/19/21 18:57 Consult: Hospitalist Routine Consulting Provider: Pradip Alcantar Reason for Consult: Hypertension EMERGENT Consult: No MD Notified: Yes Date Notified: 10/19/21 Time Notified: 18:57 Method of Notification: Provider Initiated Reason For Visit: PARTIAL SMALL BOWELL OBSTRUCTION Diagnosis Discharge Diagnosis (1) Partial obstruction of small intestine: Status: Acute Code(s): K56.600 - Partial intestinal obstruction, unspecified as to cause Medications at Discharge Home Medications hydrochlorothiazide 12.5 mg DAILY 02/20/19 amlodipine 5 mg PO DAILY 09/15/21 aspirin 81 mg capsule 81 mg PO DAILY 09/17/21 omeprazole 40 mg capsule,delayed release 40 mg PO DAILY #90 cap 09/17/21 ezetimibe 10 mg PO DAILY 10/19/21 Hospital Course Operations None Procedures None Summary of Care Provided Minutes Spent on Discharge: 30 Hospital Course: Patient presented with a 1 day history of abdominal pain and nausea/vomiting. NG tube was placed. CT scan of the abdomen/pelvis demonstrated dilated loops of small bowel, air throughout the colon and stool. No transition point noted. His white count was slightly elevated. Patient was admitted for bowel rest and IV fluids. A small bowel follow-through which demonstrated partial incomplete small bowel obstruction versus ileus pattern. Patient's white count returned to normal on 10/20. He had multiple bowel movements following the small bowel follow-through. NG tube was removed and he was started on a clear liquid diet. Upon discharge, he was tolerating a diet. Denies abdominal pain. He denies nausea/vomiting with full liquids. Patient continued to have bowel movements. He was recommended to continue soft food diet at discharge for 1 we ek. He may gradually increase to regular diet as tolerated after 1 week. Follow- up with Dr. Batista in 2 weeks. Physical Exam Const alert, oriented x3 and no apparent distress HEENT normocephalic Eyes PERRL Neck full ROM Resp normal respiratory effort and clear to auscultation bilaterally Cardio regular rate and regular rhythm GI soft to palpation and non-tender GI Narrative: central obesity Auscultation: normoactive bowel sounds Weight / BMI Weight Weight: 210 lb 5.136 oz Body Mass Index (BMI) 30.2 ABG / Lab / Microbiology Data Result Diagrams: 10/20/21 05:35 10/20/21 05:35 Radiography Diagnostic Testing: Radiology Impression Spine X-Ray 10/20/21 14:45 IMPRESSION: The nasogastric tube is not coiled. Electronically Signed: Quique Rosales MD at 15:09 EST , Service support , D/C Instructions Discharge Diet: Soft diet (For 1 week upon discharge and then advance slowly back to normal) Please Follow Up With: José Miguel Batista MD When: 2 weeks. Please call our office for an appointment. Meaningful Use Info Meaningful Use Diagnoses (Choose all that apply): None applicable Discharge Plan Admission Admit Date/Time: 10/20/21 16:02 Primary Reason for Your Visit: Small bowel obstruction Attending Provider: José Miguel Batista Primary Care Provider: Osvaldo Garcia Consulting Providers: Ev Saul ; Marycruz Carroll ; Lalit Koenig ; Quinton Dumas ; Jah Laguna ; Mayra Bolanos ; Bakari Ocasio ; Joe Ramirez ; Zack Saleh ; Margaret Alvarado ; Chirag Martinez ; Huyen Camacho ; Jose Dos Santos ; Doug Del Cid ; Imer Goldstein ; Galo Law ; Liz Dela Cruz ; Leydi Santiago NP ; Michelle Vega ; Mindy Petty Discharge Orders/Prescriptions Prescriptions: Continued aspirin 81 mg capsule 81 mg PO DAILY RF: 0 omeprazole 40 mg capsule,delayed release(DR/EC) 40 mg PO DAILY Qty: 90 RF: 3 hydrochlorothiazide 12.5 MG capsule 12.5 mg DAILY RF: 0 amlodipine 5 mg Tablet 5 mg PO DAILY RF: 0 ezetimibe 10 mg tablet 10 mg PO DAILY RF: 0 Referrals / Follow Up: José Miguel Batista MD [STAFF PHYSICIAN] - 11/04/21 (Please call to schedule an appointment for follow-up. ) Osvaldo Garcia MD [Primary Care Provider] - Disposition Disposition (needs filled in before D/C Order can be placed): Home, Self Care Charges/Coding Visit Charges Inpatient E&M: 96153 Disch Hosp
[2021-10-21 14:56] VITALS: BP 122/79; PULSE 75; RESP 18; TEMP 37.2; O2SAT 98
== END 2021-10-21 15:43 | disposition home or self-care (01) | DRG 390 ==
LOC: ED 18:20 → MS3 10-20 05:52
PROVIDERS: Surgery; Admitting Provider Surgery; Emergency Provider Emergency Medicine; PCP Family Medicine; Visit Provider Surgery
DX: K56.600 Partial intestinal obstruction, unspecified as to cause (principal); E86.0 Dehydration; E78.00 Pure hypercholesterolemia, unspecified; I10 Essential (primary) hypertension; E66.9 Obesity, unspecified; Z90.49 Acquired absence of other specified parts of digestive tract; Z87.891 Personal history of nicotine dependence; Z82.49 Family history of ischemic heart disease and other diseases of the circulatory system; Z79.82 Long term (current) use of aspirin; Z68.30 Body mass index [BMI] 30.0-30.9, adult
CPT/HCPCS: 36415; 72020; 74018; 74177; 74250; 80048; 80053; 81001; 85025; 94640; 99251; 99285; J7120; Q9967; A4216; G0463; J2405

== ENCOUNTER 2021-11-13 11:24 | Outpatient (CLI) | payer MEDICARE, SELFPAY ==
--- NOTE | 2021-11-13 11:32 | CT_ITS ---
STUDY: CT ABDOMEN AND PELVIS WITHOUT CONTRAST REASON FOR EXAM: Male, 71 years old. Abd pain -- RECTAL contrast also pls RADIATION DOSAGE (If Supplied By Facility): CTDIvol = ( 15.00 ) mGy, DLP = ( 1589.65 ) mGycm TECHNIQUE: Transaxial images were obtained from the dome of the diaphragm to the symphysis pubis without oral contrast, and without intravenous contrast. Sagittal and coronal images were reconstructed. Individualized dose optimization techniques were used for this CT. COMPARISON: Comparison is made with prior study dated 10/19/2021. FINDINGS: Calcified granuloma in the right lower lobe. The visualized portions of the heart are within normal limits. Normal liver. There are surgical clips in the gallbladder fossa consistent with a prior cholecystectomy. There are multiple benign calcified granulomata of the spleen. Normal pancreas. Normal bilateral adrenal glands. Normal right kidney. Normal left kidney. Normal visualized stomach. Normal small intestine. A large amount of fecal material is seen throughout the colon. Diverticulosis of the entire colon. The appendix is visualized and appears normal. There is scattered atherosclerotic calcification of the abdominal aorta, without a demonstrated aneurysm. Normal inferior vena cava. Normal retroperitoneum. Normal urinary bladder. There is a small umbilical hernia containing fat. Small right inguinal hernia containing fat. Disc space narrowing and disc degeneration at the L4-L5 and L5-S1 levels. Loss of the normal lumbar lordosis. CT/Abdomen/Pelvis without Cont IMPRESSION: Large amount of fecal material is seen throughout the colon. Colonic diverticulosis. Electronically Signed: Quique Rosales MD at 14:10 EST , Service support ,
== END 2021-11-13 23:59 | disposition short-term general hospital (02) ==
PROVIDERS: PCP Family Medicine; Visit Provider Surgery
DX: K57.30 Diverticulosis of large intestine without perforation or abscess without bleeding (principal); R10.9 Unspecified abdominal pain
CPT/HCPCS: 74176

== ENCOUNTER 2021-11-17 05:26 | Day surgery (SDC) | payer MEDICARE, SELFPAY ==
[2021-11-17] VITALS (7 sets, daily range): BP systolic 91–133; BP diastolic 61–83; PULSE 50–73; RESP 16; TEMP 36.1–36.3; O2SAT 92–97; BMI 28.1
--- NOTE | 2021-11-17 05:37 | PCM.HP.BLA ---
History and Physical Date of Admission: 11/17/21 Visit Reasons: DISCUSS CT Chief Complaint: discuss colonoscopy Traveling Sales Representative Required: No Is patient in pain?: No Allergies Fhxdpga-MXY-ReM Reductase Inhibitor [Hvarkwn-Nbf-Ovg Reductase Inhibitor] Allergy (Unknown, Verified 11/16/21 15:12) unknown COUGH MEDICINE Adverse Reaction (Uncoded 11/16/21 09:13) Other Medications hydrochlorothiazide 12.5 mg DAILY 02/20/19 [History Confirmed 11/16/21] amlodipine 5 mg PO DAILY 09/15/21 [History Confirmed 11/16/21] aspirin 81 mg capsule 81 mg PO DAILY 09/17/21 [History Confirmed 11/16/21] omeprazole 40 mg capsule,delayed release 40 mg PO DAILY #90 cap 09/17/21 [Rx Confirmed 11/16/21] ezetimibe 10 mg PO DAILY 10/19/21 [History Confirmed 11/16/21] [facility] Medical History Abdominal pain, acute, right upper quadrant Anxiety Back pain Cancer Former smoker Gallstones without obstruction of gallbladder Heartburn Hernia High cholesterol History of Holter monitoring History of irregular heartbeat History of stress test History of ulceration Hoarseness Hypertension Injury of back Meniscus degeneration Prostate disease Tonsil and adenoid disease, chronic Wears glasses Surgical History History of colonoscopy (~2018) History of hernia repair History of laparoscopic cholecystectomy History of tonsillectomy Family History Brother Arthritis Father Arthritis Hypertension High cholesterol Mother Hypertension High cholesterol Social History adopted: No household members: spouse housing: house number of children: 2 current occupational status: retired current occupational exposures/hazards: No pets and animals: No sexually active: Yes Smoking Status: Former smoker Tobacco: How many years used: 25 alcohol intake: current substance use type: does not use well-balanced diet: daily or most days caffeine: Yes eating out: 1-3 times/week during the past year weight has: remained stable what type of physical activity do you participate in: walking and additional frequency: 3-4 times per week duration: 60-90 minutes/day viviana/shinto: Islam seatbelt use: always do you feel safe at home: Yes HPI HPI HPI: COLT HURT, is a 71 M who presents to the office today for ongoing surgical consultation regarding abdominal pain bloating nausea decreased stool caliber and constipation. On November 13, 2021 we received a phone contact from the patient suggesting worsening symptoms. He he was hesitant to go through the weekend without further clarification. We urgently obtained a abdominal pelvic CT with oral contrast. Rectal contrast was given as well. This did not show any signs of recurrent small bowel obstruction. It demonstrated a large amount of fecal material seen throughout the colon. Colonic diverticulosis was identified. A small umbilical hernia and a small right inguinal hernia noted. The etiology however to the patient's nausea and abdominal pain was not determined. He presents today to discuss urgent scheduling for combined esophagogastroduodenoscopy and colonoscopy with possible biopsy or polypectomy. The patient states that after he took the CT scan he felt well for the following day. But then yesterday November 15 he started to have left upper quadrant pain diminished stool output and left lower quadrant abdominal pain I just recently seen him in the office on November 10, 2021 with my notes reflecting the following. Intake Intake Visit Reasons: POST OP BOWEL OBSTRUCTION 10/21 Chief Complaint: constipation/change in bowel habits Traveling Sales Representative Required: No Is patient in pain?: Yes (LLQ) Pain scale (1-10): 6 Allergies Lauqvfx-KTS-CbX Reductase Inhibitor [Clmujxp-Iek-Yjg Reductase Inhibitor] Allergy (Unknown, Verified 11/10/21 15:25) unknown COUGH MEDICINE Adverse Reaction (Uncoded 10/19/21 14:34) Other Medications hydrochlorothiazide 12.5 mg DAILY 02/20/19 [History Confirmed 11/10/21] amlodipine 5 mg PO DAILY 09/15/21 [History Confirmed 11/10/21] aspirin 81 mg capsule 81 mg PO DAILY 09/17/21 [History Confirmed 11/10/21] omeprazole 40 mg capsule,delayed release 40 mg PO DAILY #90 cap 09/17/21 [Rx Confirmed 11/10/21] ezetimibe 10 mg PO DAILY 10/19/21 [History Confirmed 11/10/21] [facility] Medical History (Updated 11/10/21 @ 15:[address] José Miguel Batista MD) Abdominal pain, acute, right upper quadrant Anxiety Back pain Cancer Former smoker Gallstones without obstruction of gallbladder Gastric reflux Heartburn Hernia High cholesterol History of echocardiogram History of irregular heartbeat History of stress test History of ulceration Hoarseness Hypertension Injury of back Meniscus degeneration Prostate disease Tonsil and adenoid disease, chronic Wears glasses Surgical History (Updated 11/10/21 @ 15:25 by Breanna Diaz) History of colonoscopy (~2018) History of hernia repair History of laparoscopic cholecystectomy History of tonsillectomy Family History Brother Arthritis Father Arthritis Hypertension High cholesterol Mother Hypertension High cholesterol Social History adopted: No household members: spouse housing: house number of children: 2 current occupational status: retired current occupational exposures/hazards: No pets and animals: No sexually active: Yes Smoking Status: Former smoker Tobacco: How many years used: 25 alcohol intake: current substance use type: does not use well-balanced diet: daily or most days caffeine: Yes eating out: 1-3 times/week during the past year weight has: remained stable what type of physical activity do you participate in: walking and additional frequency: 3-4 times per week duration: 60-90 minutes/day viviana/shinto: Islam seatbelt use: always do you feel safe at home: Yes HPI HPI HPI: COLT HURT, is a 71 M who presents to the office today for surgical follow-up status post hospitalization for partial small bowel obstruction. The patient was admitted October 19 through October 21, 2021 with findings consistent with partial small bowel obstruction. He had a Gastrografin small bowel follow-through which suggested an incomplete small bowel obstruction versus ileus. An NG tube was briefly in place. The patient made steady progress and did not require surgical intervention. He has also had a previous remote history of the same. Since the patient's discharge he continues to feel unwell. He has remained on a light diet. He has had weight loss. He gets point where he feels distended and then he takes a motility laxative. He claims that his stool has been of variable caliber sometimes quite small in diameter. He presents to me a colonoscopy that he had done by Dr. Munroe March 27, 2019 at that time because of left upper quadrant pain. A 1 cm cecal polyp was removed that was a sessile serrated polyp. Diverticulosis of the sigmoid was identified. Random biopsies on the left were benign no evidence of colitis. The patient since he has been home has had no fever no nausea no vomiting. He has had intermittent episodes of abdominal distention which he was treated with laxatives. He has been very cautious with his diet because he does not want to risk a repeat episode of nausea vomiting and a trip back to the emergency room as he knows that there may not be the opportunity for admission and treatment. It is of note that September 17, 2021 for chronic cholecystitis and cholelithiasis he underwent laparoscopic cholecystectomy with cholangiograms. Previously March 05, 2019 the patient had a small bowel follow-through with no acute findings. My notes prior to the patient's cholecystectomy reflect the following HPI: COLT HURT, is a 71 M who presents to the office today for surgical consultation regarding abdominal pain. The patient is referred by emergency room physician Dr. Osvaldo Brannon and a written copy of my surgical consult and recommendations will return to him. The patient was seen in the [facility] emergency room on September 15, 2021 with a complaint of acute right upper quadrant pain. The patient had been nauseated though no vomiting. Right upper quadrant tenderness was noted on exam. He was afebrile. His laboratories notable for a white blood cell count of 7.5 with a hemoglobin 15.7 hematocrit 45.9 platelet count 246,000. BMP had a BUN of 21 and creatinine of 1.27. Liver function tests were normal. Lipase 166. A gallbladder ultrasound was obtained showing fatty infiltration of the liver multiple gallstones and there was felt to be a positive Nolan sign. It was recommended to the patient that he seek outpatient care and was referred to me for surgical treatment. The patient presents to the office with his . His story is much more complex than previously advertised. For years he has had abdominal bloating indigestion he frequently takes Gaviscon. Dr. Grover Verdugo 2 years ago did perform an upper endoscopy demonstrating duodenitis and gastritis. The patient was placed on omeprazole therapy but he took a course of that then he stopped it. He very frequently takes Gaviscon for symptoms of indigestion. He states that he was on statin medications which caused him to get very anxious. 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 He is not currently on a statin medication but he feels that it caused him to have an anxiety issue as well. He states several years ago he also had a colonoscopy with some few polyps. He states he is due for follow-up exam in 1 year. We have evidence of December 06, 2004 when he was hospitalized at [facility] for small bowel obstruction. CT scan suggested suspicious for early or incomplete small bowel obstruction. Appendix could not be identified. Very slight streaking of fat in the right side of the abdomen but no evidence for abscess. No fluid collection. At that time the patient had periumbilical and midepigastric pain. The exact etiology actually was never deciphered. He resolved with conservative measures. He frequently has burping and belching. He frequently has nausea. He frequently has upper abdominal discomfort left upper quadrant discomfort left lower quadrant discomfort. He had more right upper quadrant discomfort and that is why he went to the emergency room. He has not noticed any dark-colored urine. He has moved his bowels several times since the emergency room visit. No bright red blood per rectum or melena. No cari colored stools. ROS General General: Yes fatigue; No weight change, appetite, colon cancer, breast cancer or weakness HEENT HEENT: No difficulty swallowing, eye injury, eye surgery, swollen glands or hoarseness Endo Endocrine: No thyroid disease, diabetes mellitus, thyroid cancer, Hair loss, heat intolerance or cold intolerance Skin Skin: No rash or changing moles Breast Breast: No left breast lump, right breast lump, nipple discharge, breast pain, abnormal mammogram, abnormal US or breast enlargement Musc Musculoskeletal: Yes back problems; No arthritis, rheumatoid arthritis, gout or joint pain Cardio Cardiovascular: Yes high blood pressure; No murmur, pacemaker, heart disease, atrial fibrillation, heart attack, heart stent, palpitations, shortness of breat with exertion or chest pain Psych Psychiatric: Yes anxiety; No depression or hearing voices Resp Respiratory: No shortness of breath, No sleep apnea, No cough, No COPD, No asthma, No emphysema and No wheezing Gastro Gastrointestinal: Yes abdominal pain, Yes nausea or vomiting, Yes diarrhea, Yes constipation, No blood in stool, Yes acid reflux, No hemorrhoids, No ulcers, Yes gallbladder problem and No black,tarry stools Josh Hematologic: Yes blood thinners, No blood disorders, No bleeding, No anemia and No blood clots Neuro Neurologic: No system reviewed and no additional complaints, except as documented, No as per HPI, No abnormal gait, No abnormal hearing, No abnormal movements, No abnormal speech, No behavioral changes, No burning sensations, No confusion, No convulsions, No disequilibrium, No dizziness, No localized weakness, No frequent falls, No headache(s), No lack of coordination, No loss of vision, No memory loss, Yes numbness, No other visual disturbances, No radicular pain, No restless legs, No sensory deficit, No syncope, Yes tingling, No tremor(s), No weakness and No other Exam Const General: cooperative, comfortable and no acute distress Nutritional Appearance: overweight Orientation: alert, awake and oriented x3 Resp Effort & Inspection: normal respiratory effort Auscultation: clear to auscultation bilaterally GI Other: Soft, healing laparoscopic cholecystectomy incisions, persistent nonreducible umbilical hernia which was not addressed at the time of his gallbladder surgery. Slight tenderness to very deep palpation in the left lower quadrant without mass rebound or guarding. Bowel sounds are absent. Other: Testicles are descended. Evidence of previous incision left groin from remote hernia repair. No focal masses. No tenderness. No inguinal weakness or defects Assessment and Plan Assessment and Plan (1) Abdominal distention: Status: Acute Plan - Dr. José Miguel Batista MD: Patient's recurrent episodes with abdominal distention are indeterminate. As noted in the past going back to as recent as January 2019 because of left upper quadrant pain of which he is still complaining he had an upper and lower endoscopy which was not revealing. More recently his abdominal distention requires treatment with an oral laxative. I have recommended to him that he consider utilizing MiraLAX. It is difficult to decipher whether his problems are persistent recurrent small bowel obstruction versus potential for large bowel issues. The diminutive caliber stool would suggest more of a large bowel phenomena as with the improvement with oral laxatives. This point I recommend a Harper orally contrasted CT scan orally and rectally. Trying to help decipher whether this is small or large bowel etiology. I have asked the patient to put aside the oral stimulant laxatives and utilize MiraLAX instead. We will have him return to the office subsequent to the further imaging He has had an opportunity to ask and have questions answered. We will pursue is noted. Copy: Dr. Osvaldo Batista M.D., F.A.C.S. ROS General General: Yes fatigue; No weight change, appetite, colon cancer, breast cancer or weakness HEENT HEENT: No difficulty swallowing, eye injury, eye surgery, swollen glands or hoarseness Endo Endocrine: No thyroid disease, diabetes mellitus, thyroid cancer, Hair loss, heat intolerance or cold intolerance Skin Skin: No rash or changing moles Breast Breast: No left breast lump, right breast lump, nipple discharge, breast pain, abnormal mammogram, abnormal US or breast enlargement Musc Musculoskeletal: Yes back problems; No arthritis, rheumatoid arthritis, gout or joint pain Cardio Cardiovascular: Yes high blood pressure; No murmur, pacemaker, heart disease, atrial fibrillation, heart attack, heart stent, palpitations, shortness of breat with exertion or chest pain Psych Psychiatric: Yes anxiety; No depression or hearing voices Resp Respiratory: No shortness of breath, No sleep apnea, No cough, No COPD, No asthma, No emphysema and No wheezing Gastro Gastrointestinal: Yes abdominal pain, Yes nausea or vomiting, Yes diarrhea, Yes constipation, No blood in stool, Yes acid reflux, No hemorrhoids, No ulcers, Yes gallbladder problem and No black,tarry stools Josh Hematologic: Yes blood thinners, No blood disorders, No bleeding, No anemia and No blood clots Neuro Neurologic: No system reviewed and no additional complaints, except as documented, No as per HPI, No abnormal gait, No abnormal hearing, No abnormal movements, No abnormal speech, No behavioral changes, No burning sensations, No confusion, No convulsions, No disequilibrium, No dizziness, No localized weakness, No frequent falls, No headache(s), No lack of coordination, No loss of vision, No memory loss, Yes numbness, No other visual disturbances, No radicular pain, No restless legs, No sensory deficit, No syncope, Yes tingling, No tremor(s), No weakness and No other Assessment and Plan Assessment and Plan (1) History of peptic ulcer disease: Status: Acute (2) History of small bowel obstruction: Status: Acute (3) Abdominal pain: Status: Acute Qualifiers: Abdominal location: left lower quadrant Qualified Code(s): R10.32 - Left lower quadrant pain (4) Change in bowel habit: Status: Acute Plan - Dr. José Miguel Batista MD: Left upper quadrant abdominal pain and left lower quadrant abdominal pain distinct change of bowel habits with very small stool, and abdominal distention. Findings are suggesting possible chronic constipation with motility issues. I am recommending because of the left upper quadrant pain and his history of peptic ulcer disease that we perform a esophagogastroduodenoscopy with possible biopsy and because of his focus left lower quadrant pain and feeling that it is like a valve being shut off that we have performed a colonoscopy with possible biopsy or polypectomy as indicated. He is aware of the technique, benefit, risk, alternatives. We will expedite his endoscopy tomorrow. If pathology is identified then it could be addressed as appropriate. If no pathology is identified then possibly this patient's problem is chronic constipation with bowel motility issues. If that is the case we will advise increased utilization of MiraLAX. We will then additionally advise gastroenterology consultation in case one of the more advanced medications would be appropriate. He has had an opportunity to ask and have questions answered. We will continue to expedite his care. Copy: Dr. Osvaldo Batista M.D., F.A.C.S. I have re-examined the patient. There are no clinical changes since date of exam.
[2021-11-17] MEDS: Lactated Ringers 1,000 ML 15 ML IV (05:59)
--- NOTE | 2021-11-17 06:30 | EGD_PTH ---
PATIENT: COLT HURT LOC: EN U#:[id number] AGE/SX: 71/M ROOM: RE11/17/[address]: Dr. José Miguel Batista MD : 1950 BED: DIS: 11/17/2021 SPEC #: [id number] RECD: 11/17/21 07:29 STATUS: BRITTNEY MACIASLandy #: [id number] DERICK: 11/17/21 06:[address]: José Miguel Batista DEPT: SURGICAL PATHOLOGY RECD BY: Jacqueline Shahid ENTERED: 11/17/21 10:18 SP TYPE: EGD BIOPSY OT DR: Osvaldo Garcia MD Tissues: A - Duodenum, NOS B - Gastric mucous membrane C - Esophagus, NOS D - Esophagus, NOS E - COLON BIOPSY F - Sigmoid colon biopsy Procedures: Surgery Specimen Level IV HEADER OPERATION: [place] [place] DIAGNOSIS: History of peptic ulcer disease or small bowel obstruction, abdominal pain, change in bowel habit TISSUE SUBMITTED: A ? Duodenum biopsy, B ? Antrum biopsy for H. pylori and path, C ? Distal esophagus biopsy, D ? Mid esophagus biopsy, E ? Left colonic biopsies, F ? Mid sigmoid polyp biopsy MICROSCOPIC DIAGNOSIS A. Duodenum, biopsy: No pathologic change. B. Gastric antrum, biopsy: Mild chronic inflammation and mild glandular atrophy. See comment. C. Distal esophagus, biopsy: Gastroesophageal junction with mild chronic inflammation. No evidence of goblet cell metaplasia. Focal changes of reflux. See comment. D. Mid esophagus, biopsy: No pathologic change. E. Left colon, biopsy: No pathologic change. F. Mid sigmoid colon polyp, biopsy: Fragments of hyperplastic polyp. AM:madan 11/18/2021 COMMENT B. The results of immunohistochemistry for Helicobacter pylori will be reported separately ([id number]). C. Alcian blue/PAS stain with matched control supports the above diagnosis. MICROSCOPIC DESCRIPTION Slides are reviewed. GROSS DESCRIPTION A - Received in fixative is one container labeled with the patient's name and designated duodenum biopsy. The specimen consists of one irregular fragment of light hoff soft tissue that measures 0.3 x 0.3 x 0.1 cm. The specimen is totally submitted in one cassette. B - Received in fixative is one container labeled with the patient's name and designated antrum biopsy. The specimen consists of one irregular fragment of light hoff soft tissue that measures 0.3 x 0.3 x 0.1 cm. The specimen is totally submitted in one cassette. C - Received in fixative is one container labeled with the patient's name and designated distal esophagus biopsy. The specimen consists of one irregular fragment of light hoff soft tissue that measures 0.3 x 0.3 x 0.1 cm. The specimen is totally submitted in one cassette. D - Received in fixative is one container labeled with the patient's name and designated mid esophagus biopsy. The specimen consists of one irregular fragment of light hoff soft tissue that measures 0.5 x 0.3 x 0.1 cm. The specimen is totally submitted in one cassette. E - Received in fixative is one container labeled with the patient's name and designated left colon biopsy. The specimen consists of multiple irregular fragments of light hoff soft tissue that in aggregate measure 2 x 0.3 x 0.1 cm. The specimen is totally submitted in one cassette. F - Received in fixative is one container labeled with the patient's name and designated mid sigmoid polyp biopsy. The specimen consists of two irregular fragments of light hoff soft tissue that in aggregate measure 0.6 x 0.3 x 0.1 cm. The specimen is totally submitted in one cassette. / SJ:rg 11/17/2021 TC:5 CPT: 99072 x6, [id number]
--- NOTE | 2021-11-17 06:30 | IMM_PTH ---
PATIENT: COLT HURT LOC: EN U#:[id number] AGE/SX: 71/M ROOM: RE11/17/[address]: Dr. José Miguel Batista MD : 1950 BED: DIS: 11/17/2021 SPEC #: [id number] RECD: 11/17/21 13:58 STATUS: BRITTNEY REQ #: [id number] DERICK: 11/17/21 06:[address]: José Miguel Batista DEPT: IMMUNOHISTOCHEMISTRY RECD BY: Betty Zimmerman ENTERED: 11/17/21 13:59 SP TYPE: IMMUNO OTHR DR: Osvaldo Garcia MD Tissues: B - Stomach, NOS Procedures: H Pylori (initial) PHYSICIAN & INSTITUTION [place] [id number] SPECIMEN INFORMATION: Tissue Source: B ? Antrum biopsy Clinical Info: History of peptic ulcer disease and small bowel obstruction, abdominal pain, change in bowel habit Specimen Number: [id number] CPT code: 98935 METHODOLOGY: Deparaffinized sections of prefer/formalin-fixed tissue or PAP/DQ stained slides are incubated with monoclonal/polyclonal antibodies/oligonucleotide probes. Localization is made via biotin free immunoperoxidase method. Appropriate controls are performed and reacted as expected. Results on target cell population are indicated in the following table: RESULTS: ANTIBODY / CLONE RESULT Block B H Pylori (polyclonal) negative These tests were developed and their performance characteristics determined by [facility]. They may not have been cleared or approved by the [place]. Food and Drug Administration. The FDA has determined that such clearance or approval is not necessary. INTERPRETATION: B. Antrum biopsy: Negative for Helicobacter pylori organisms. AM:madan 11/18/2021
--- NOTE | 2021-11-17 07:06 | OP.EGD_ITS ---
Patient Name: Gabe Lainez Procedure Date: 11/17/2021 6:21 AM Date of : 1950 Age: 71 Procedure: Upper GI endoscopy Indications: Abdominal pain in the left upper quadrant Providers: José Miguel Batista MD Medicines: See the Anesthesia note for documentation of the administered medications Complications: No immediate complications. Procedure: Pre-Anesthesia Assessment: - Prior to the procedure, a History and Physical was performed, and patient medications and allergies were reviewed. The patient's tolerance of previous anesthesia was also reviewed. The risks and benefits of the procedure and the sedation options and risks were discussed with the patient. All questions were answered, and informed consent was obtained. Prior Anticoagulants: The patient has taken no previous anticoagulant or antiplatelet agents. ASA Grade Assessment: II - A patient with mild systemic disease. After reviewing the risks and benefits, the patient was deemed in satisfactory condition to undergo the procedure. After obtaining informed consent, the endoscope was passed under direct vision. Throughout the procedure, the patient's blood pressure, pulse, and oxygen saturations were monitored continuously. The gastroscope was introduced through the mouth, and advanced to the second part of duodenum. The upper GI endoscopy was accomplished without difficulty. The patient tolerated the procedure well. Scope In: 6:34:44 AM Scope Out: 6:40:12 AM Total Procedure Duration Time 0 hours 5 minutes 28 seconds Findings: The Z-line was regular and was found 42 cm from the incisors. Biopsies were taken with a cold forceps for histology. The middle third of the esophagus was normal. Biopsies were taken with a cold forceps for histology. A small hiatal hernia was present. Diffuse mildly erythematous mucosa without bleeding was found in the gastric antrum. Biopsies were taken with a cold forceps for histology. Diffuse mildly erythematous mucosa without active bleeding and with no stigmata of bleeding was found in the duodenal bulb. Biopsies were taken with a cold forceps for histology. Impression: - Z-line regular, 42 cm from the incisors. Biopsied. - Normal middle third of esophagus. Biopsied. - Small hiatal hernia. - Erythematous mucosa in the antrum. Biopsied. - Erythematous duodenopathy. Biopsied. Recommendation: - Discharge patient to home. - Resume previous diet. - Continue present medications. - Telephone my office for pathology results in 1 week. No findings to correlate with significant disease Procedure Code(s): --- Professional --- 80937, Esophagogastroduodenoscopy, flexible, transoral; with biopsy, single or multiple Diagnosis Code(s): --- Professional --- K44.9, Diaphragmatic hernia without obstruction or gangrene K31.89, Other diseases of stomach and duodenum R10.12, Left upper quadrant pain CPT copyright 2017 [employer]. All rights reserved. The codes documented in this report are preliminary and upon senior clinical data analyst review may be revised to meet current compliance requirements. José Miguel Batista MD 11/17/2021 7:06:19 AM This report has been signed electronically. Number of Addenda: 0 Note Initiated On: 11/17/2021 6:21 AM
--- NOTE | 2021-11-17 07:06 | OP.CCLET_ITS ---
11/17/2021 Osvaldo Garcia Md Re : Upper GI endoscopy procedure for Gabe Lainez Dear Jose This procedure was performed on Wednesday, November 17, 2021. My impressions and recommendations are as follows: Impressions : - Z-line regular, 42 cm from the incisors. Biopsied. - Normal middle third of esophagus. Biopsied. - Small hiatal hernia. - Erythematous mucosa in the antrum. Biopsied. - Erythematous duodenopathy. Biopsied. Recommendations : - Discharge patient to home. - Resume previous diet. - Continue present medications. - Telephone my office for pathology results in 1 week. No findings to correlate with significant disease My findings are described in the full procedure note, which is enclosed. If I can be of further assistance, please feel free to contact me at Doctor phone number(s): Work: . Sincerely, José Miguel Batista MD 11/17/2021 7:06:19 AM This report has been signed electronically.
--- NOTE | 2021-11-17 07:11 | OP.COLON_ITS ---
Patient Name: Gabe Lainez Procedure Date: 11/17/2021 6:42 AM Date of : 1950 Age: 71 Procedure: Colonoscopy Indications: Abdominal pain in the left lower quadrant Providers: José Miguel Batista MD Medicines: See the Anesthesia note for documentation of the administered medications Patient Profile: Last Colonoscopy: 3 years ago. Complications: No immediate complications. Procedure: Pre-Anesthesia Assessment: - Prior to the procedure, a History and Physical was performed, and patient medications and allergies were reviewed. The patient's tolerance of previous anesthesia was also reviewed. The risks and benefits of the procedure and the sedation options and risks were discussed with the patient. All questions were answered, and informed consent was obtained. Prior Anticoagulants: The patient has taken no previous anticoagulant or antiplatelet agents. ASA Grade Assessment: II - A patient with mild systemic disease. After reviewing the risks and benefits, the patient was deemed in satisfactory condition to undergo the procedure. After I obtained informed consent, the scope was passed under direct vision. Throughout the procedure, the patient's blood pressure, pulse, and oxygen saturations were monitored continuously. The colonoscope was introduced through the anus and advanced to the cecum, identified by appendiceal orifice and ileocecal valve. The colonoscopy was performed without difficulty. The patient tolerated the procedure well. The quality of the bowel preparation was good. The ileocecal valve and the appendiceal orifice were photographed. Scope In: 6:45:05 AM Scope Withdrawal Time 0 hours 9 minutes 58 seconds Scope Out: 6:59:55 AM Total Procedure Duration Time 0 hours 14 minutes 50 seconds Findings: The digital rectal exam findings include non-thrombosed internal hemorrhoids, internal hemorrhoids that prolapse with straining, but spontaneously regress to the resting position (Grade II) and enlarged prostate. Scattered diverticula were found in the sigmoid colon. A 4 mm polyp was found in the mid sigmoid colon. The polyp was sessile. The polyp was removed with a cold biopsy forceps. Resection and retrieval were complete. The colon (entire examined portion) was mildly redundant. Biopsies for histology were taken with a cold forceps from the left colon for evaluation of microscopic colitis. Impression: - Non-thrombosed internal hemorrhoids, internal hemorrhoids that prolapse with straining, but spontaneously regress to the resting position (Grade II) and enlarged prostate found on digital rectal exam. - Diverticulosis in the sigmoid colon. - One 4 mm polyp in the mid sigmoid colon, removed with a cold biopsy forceps. Resected and retrieved. - Redundant colon. - Biopsies were taken with a cold forceps from the left colon for evaluation of microscopic colitis. Recommendation: - Discharge patient to home. - Resume previous diet. - Continue present medications. - Repeat colonoscopy in 10 years for screening purposes. - Telephone my office for pathology results in 1 week. No findings to correlate with LLQ pain or obstruction Will advise pt to take miralax daily. May need GI referral Procedure Code(s): --- Professional --- 11046, Colonoscopy, flexible; with biopsy, single or multiple Diagnosis Code(s): --- Professional --- K64.1, Second degree hemorrhoids D12.5, Benign neoplasm of sigmoid colon R10.32, Left lower quadrant pain N40.0, Benign prostatic hyperplasia without lower urinary tract symptoms K57.30, Diverticulosis of large intestine without perforation or abscess without bleeding Q43.8, Other specified congenital malformations of intestine CPT copyright 2017 [employer]. All rights reserved. The codes documented in this report are preliminary and upon electrogalvanizing machine operator review may be revised to meet current compliance requirements. José Miguel Batista MD 11/17/2021 7:11:09 AM This report has been signed electronically. Number of Addenda: 0 Note Initiated On: 11/17/2021 6:42 AM
--- NOTE | 2021-11-17 07:11 | OP.CCLET_ITS ---
11/17/2021 Osvaldo Garcia Md Re : Colonoscopy procedure for Gabe Lainez Dear Jose This procedure was performed on Wednesday, November 17, 2021. My impressions and recommendations are as follows: Impressions : - Non-thrombosed internal hemorrhoids, internal hemorrhoids that prolapse with straining, but spontaneously regress to the resting position (Grade II) and enlarged prostate found on digital rectal exam. - Diverticulosis in the sigmoid colon. - One 4 mm polyp in the mid sigmoid colon, removed with a cold biopsy forceps. Resected and retrieved. - Redundant colon. - Biopsies were taken with a cold forceps from the left colon for evaluation of microscopic colitis. Recommendations : - Discharge patient to home. - Resume previous diet. - Continue present medications. - Repeat colonoscopy in 10 years for screening purposes. - Telephone my office for pathology results in 1 week. No findings to correlate with LLQ pain or obstruction Will advise pt to take miralax daily. May need GI referral My findings are described in the full procedure note, which is enclosed. If I can be of further assistance, please feel free to contact me at Doctor phone number(s): Work: . Sincerely, José Miguel Batista MD 11/17/2021 7:11:09 AM This report has been signed electronically.
== END 2021-11-17 23:59 | disposition home or self-care (01) ==
LOC: EN 05:27 → AC 05:29
PROVIDERS: PCP Family Medicine; Referring Provider Family Medicine; Visit Provider Surgery
PROC: 0DJD8ZZ Inspection of Lower Intestinal Tract, Via Natural or Artificial Opening Endoscopic (ICD-10-PCS; CPT 45378; principal; 2021-11-17 06:25)
DX: K63.5 Polyp of colon (principal); K64.1 Second degree hemorrhoids; Z90.49 Acquired absence of other specified parts of digestive tract; Z87.891 Personal history of nicotine dependence; K44.9 Diaphragmatic hernia without obstruction or gangrene; N40.0 Benign prostatic hyperplasia without lower urinary tract symptoms; K76.0 Fatty (change of) liver, not elsewhere classified; Q43.8 Other specified congenital malformations of intestine; E78.00 Pure hypercholesterolemia, unspecified; I10 Essential (primary) hypertension; Z79.82 Long term (current) use of aspirin; Z79.899 Other long term (current) drug therapy; Z87.19 Personal history of other diseases of the digestive system; F41.9 Anxiety disorder, unspecified; K57.30 Diverticulosis of large intestine without perforation or abscess without bleeding
CPT/HCPCS: 43239; 45380; 88305; 88342; J7120

== ENCOUNTER 2021-12-18 12:02 | Outpatient (CLI) | payer MEDICARE, SELFPAY ==
[2021-12-18 14:41] LABS: Erythrocyte Sedimentation Rate 8 mm/hr (0-20)
[2021-12-18 14:43] LABS: Absolute Lymphocyte Count 1.14 X10^3/uL (0.83-4.51); Absolute Neutrophil Count 3.5 X10^3/uL (2.0-7.7); Basophil# 0.03 X10^3/uL; Basophil% 0.6 % (0-1); Eosinophil# 0.04 X10^3/uL; Eosinophils% 0.8 % (0-5); Hematocrit 48.6 % (40-54); Hemoglobin 16.5 g/dL (13.0-16.5); Lymphocyte # 1.14 X10^3/ul (0.83-4.51); Lymphocyte % 22.6 % (19-41); Mean Corpuscular Volume 88.4 fL (80-94); Mean Platelet Vol. 10.3 fl (6.2-12.0); Monocyte# 0.34 X10^3/uL; Monocyte% 6.7 % (0-10); NRBC Flagged by Analyzer 0 % (0-5); Neutrophil # 3.49 X10^3/uL (2.7-7.7); Neutrophil % 69.1 % (47-70); Platelet Count 248 K/mm3 (150-450); RBC Distribution Width SD 41.7 fl (35.1-43.9); White Blood Count 5.1 K/mm3 (4.4-11.0)
[2021-12-18 15:13] LABS: ALB/GLOB Ratio 1.4 RATIO (0.9-2.4); AST(SGOT) 23 U/L (15-37); Alanine Aminotransfer ALT/SGPT 40 U/L (16-61); Albumin, Serum 4.2 g/dL (3.2-5.0); Alkaline Phosphatase 71 U/L (45-117); Anion Gap 4 (5-15); BUN 17 mg/dL (7-18); BUN/Creat Ratio 13.7 RATIO (10-20); CRP < 2.90 mg/L (0.0-3.0); Calcium,Total 9.3 mg/dL (8.5-10.1); Chloride 104 mmol/L (98-107); Creatinine, Serum 1.24 mg/dL (0.70-1.30); EST Glomerular Filtration Rate 61 mL/min (>60); Est Glom Filt Rate - Afr Amer 74 mL/min (>60); Glucose 88 mg/dL (74-106); Potassium 3.8 mmol/L (3.5-5.1); Protein, Total 7.2 g/dL (6.4-8.2); Sodium Level 138 mmol/L (136-145)
[2021-12-21 14:08] LABS: Anti-Centromere B Ab <0.2 AI (0.0-0.9); Anti-Chromatin <0.2 AI (0.0-0.9); Anti-Jo <0.2 AI (0.0-0.9); Anti-Scleroderma-70 AB <0.2 AI (0.0-0.9); RNP Ab <0.2 AI (0.0-0.9); SJOGREN'S Anti-SS-A test < 0.2 AI (0.0-0.9); SJOGREN'S Anti-SS-B test < 0.2 AI (0.0-0.9); Smith Ab <0.2 AI (0.0-0.9)
[2021-12-21 16:58] LABS: Anti-dsDNA Ab <1 IU/mL (0-9)
[2021-12-22 17:06] LABS: Anti-Mitochondrial AB <20.0 Units (0.0-20.0)
[2021-12-25 13:08] LABS: Angiotensin Convert Enzyme 50 U/L (14-82); Cytoplasmic Ab (C-ANCA) <1:20 titer (Neg:<1:20); Dilute Prothrombin Time (dPT) 36.2 sec (0.0-47.6); Dilute Russell Viper Venom 38.9 sec (0.0-47.0); Endomysial Antibody IgA Negative (Negative); Immunoglobulin A 68 mg/dL (61-437); Immunoglobulin E 35 IU/mL (6-495); Immunoglobulin G 533 mg/dL (603-1613); PTT-LA 32.5 sec (0.0-51.9); Thrombin Time 18.1 sec (0.0-23.0); dPT Confirm Ratio 0.98 Ratio (0.00-1.34)
[2021-12-25 16:03] LABS: Anti-Smooth Muscle ABS 5 Units (0-19); Immunoglobulin M 20 mg/dL (15-143); Interpretation Comment: (.); Perinuclear Ab (P-ANCA) <1:20 titer (Neg:<1:20); t-Transglutaminase IgA <2 U/mL (0-3)
== END 2021-12-18 23:59 | disposition home or self-care (01) ==
LOC: LAB 12:03
PROVIDERS: PCP Family Medicine; Referring Provider Internal Medicine Gastroenterology; Visit Provider Internal Medicine Gastroenterology
DX: R19.4 Change in bowel habit (principal); R10.32 Left lower quadrant pain; R14.0 Abdominal distension (gaseous); Z87.19 Personal history of other diseases of the digestive system
CPT/HCPCS: 36415; 80053; 82164; 82784; 82785; 83516; 85025; 85652; 86140; 86225; 86235; 86255; 86256

== ENCOUNTER 2021-12-28 09:56 | Outpatient (CLI) | payer MEDICARE, SELFPAY ==
[2021-12-29 14:27] LABS: Giardia Lamblia, Stool EIA Negative (Negative)
[2021-12-30 11:10] LABS: Calprotectin, Stool 226 ug/g (0-120)
== END 2021-12-28 23:59 | disposition home or self-care (01) ==
LOC: LABSPEC 09:57
PROVIDERS: PCP Family Medicine; Visit Provider Internal Medicine Gastroenterology
DX: R10.32 Left lower quadrant pain (principal); R19.4 Change in bowel habit; R14.0 Abdominal distension (gaseous); R19.7 Diarrhea, unspecified; Z87.19 Personal history of other diseases of the digestive system
CPT/HCPCS: 83630; 83993; 87177; 87209; 87329; 87493; 87506

== ENCOUNTER 2022-01-25 09:52 | Outpatient (CLI) | payer MEDICARE, SELFPAY ==
--- NOTE | 2022-01-25 09:55 | RAD_ITS ---
STUDY: X-RAY - ABDOMEN/PELVIS REASON FOR EXAM: Male, 71 years old. constipation, sitz marker test -- TOOK SITZ CAPSULE ON Tuesday01-22-22 TECHNIQUE: 3 AP supine views of the abdomen and pelvis. COMPARISON: None. FINDINGS: Normal visualized lung bases. There is a moderate amount of colonic fecal material. There is no demonstrated free abdominal air. Sitzmarks markers are noted in the region of the right hepatic flexure. The visualized liver, spleen and kidneys are grossly normal in size and morphology. Normal soft tissue structures. Normal visualized osseous structures. RAD/Abdomen Single View IMPRESSION: Fecal retention in the colon. No evidence of bowel obstruction Electronically Signed: Jordon Leal DO at 16:41 EDT ,
== END 2022-01-25 23:59 | disposition home or self-care (01) ==
PROVIDERS: PCP Family Medicine; Referring Provider Internal Medicine Gastroenterology; Visit Provider Internal Medicine Gastroenterology
DX: K59.00 Constipation, unspecified (principal)
CPT/HCPCS: 74018

== ENCOUNTER 2022-01-27 11:19 | Outpatient (CLI) | payer MEDICARE, SELFPAY ==
--- NOTE | 2022-01-27 11:22 | RAD_ITS ---
STUDY: X-RAY - ABDOMEN/PELVIS REASON FOR EXAM: Male, 71 years old. Constipation, sitz marker test. TECHNIQUE: AP supine abdomen 3 images. COMPARISON: January 25, 2022. FINDINGS: There is an unremarkable bowel gas pattern. Stool is present throughout the colon suggestive of constipation. No Sitz markers are visualized. There is no demonstrated free abdominal air. The visualized liver, spleen and kidneys are grossly normal in size and morphology. Normal soft tissue structures. Normal visualized osseous structures. On the prior study 2 Sitz markers were present in the right midabdomen, a single marker in the left upper quadrant and a single marker overlying the rectum. RAD/Abdomen Single View IMPRESSION: Nonspecific bowel gas pattern without evidence of obstruction. Stool is present throughout the colon suggestive of constipation. No Sitz markers visualized. Electronically Signed: Kristopher Walden MD at 3:33 EDT Reading Location ID and State: [id number] / , Service support ,
== END 2022-01-27 23:59 | disposition home or self-care (01) ==
LOC: RAD 11:21
PROVIDERS: PCP Family Medicine; Referring Provider Nurse Practitioner Adult Health; Visit Provider Nurse Practitioner Adult Health
DX: K59.00 Constipation, unspecified (principal)
CPT/HCPCS: 74018

== ENCOUNTER 2022-02-05 11:49 | Outpatient (CLI) | payer MEDICARE, SELFPAY | END 2022-02-05 23:59 | disposition home or self-care (01) | LOC: LAB 11:50 | PROVIDERS: PCP Family Medicine; Referring Provider Nurse Practitioner Adult Health; Visit Provider Nurse Practitioner Adult Health | DX: K59.00 Constipation, unspecified (principal) | CPT/HCPCS: 36415; 84443 ==

== ENCOUNTER 2022-02-09 12:48 | Outpatient (CLI) | payer MEDICARE, SELFPAY ==
--- NOTE | 2022-02-09 13:00 | RAD_ITS ---
STUDY: X-RAY - ABDOMEN/PELVIS REASON FOR EXAM: Male, 71 years old. Abdominal pain and distention TECHNIQUE: Two AP supine views of the abdomen and pelvis. COMPARISON: None. FINDINGS: Normal visualized lung bases. There is a moderate amount of colonic fecal material. There is no demonstrated free abdominal air. No bowel motility markers noted. The visualized liver, spleen and kidneys are grossly normal in size and morphology. Normal soft tissue structures. Normal visualized osseous structures. RAD/Abdomen Single View IMPRESSION: Moderate retained stool, no suspicious findings Electronically Signed: Nando Thurston MD at 14:47 EDT ,
== END 2022-02-09 23:59 | disposition home or self-care (01) ==
LOC: RAD 12:50
PROVIDERS: PCP Family Medicine; Referring Provider Nurse Practitioner Adult Health; Visit Provider Nurse Practitioner Adult Health
DX: K59.00 Constipation, unspecified (principal); Z87.19 Personal history of other diseases of the digestive system
CPT/HCPCS: 74018

== ENCOUNTER → 2022-09-09 | Outpatient (CLI) | payer MEDICARE, SELFPAY ==
--- NOTE | 2022-09-09 08:55 | RAD_ITS ---
STUDY: X-RAY CHEST REASON FOR EXAM: Male, 72 years old. Preop for hip surgery TECHNIQUE: PA and lateral views of the chest. COMPARISON: None. FINDINGS: The lungs are clear and expanded. There is no demonstrated pleural abnormality. Normal size heart. Normal mediastinum and soha. Normal visualized pulmonary arteries. Normal visualized aortic arch and descending thoracic aorta. Normal visualized thoracic spine. Normal visualized ribs, clavicles, and shoulders. There is no demonstrated abnormality of the visualized soft tissue structures of the upper abdomen. RAD/Chest PA and Lateral IMPRESSION: No acute pulmonary process Electronically Signed: Nando Thurston MD at 14:01 EDT ,
[2022-09-09 11:04] LABS: Absolute Lymphocyte Count 0.99 X10^3/uL (0.83-4.51); Basophil# 0.03 X10^3/uL; Basophil% 0.5 % (0-1); Eosinophil# 0.08 X10^3/uL; Eosinophils% 1.4 % (0-5); Hematocrit 49.7 % (40-54); Hemoglobin 16.9 g/dL (13.0-16.5); Lymphocyte # 0.99 X10^3/ul (0.83-4.51); Lymphocyte % 17.8 % (19-41); Mean Corpuscular Hgb 30.7 pg (27.0-32.0); Mean Corpuscular Volume 90.2 fL (80-94); Mean Platelet Vol. 10.2 fl (6.2-12.0); Monocyte# 0.45 X10^3/uL; Monocyte% 8.1 % (0-10); NRBC Flagged by Analyzer 0 % (0-5); Neutrophil % 71.8 % (47-70); Platelet Count 252 K/mm3 (150-450); RBC Distribution Width CV 13.3 % (11.6-14.6); RBC Distribution Width SD 44.1 fl (35.1-43.9); Red Blood Count 5.51 M/mm3 (4.6-6.2); White Blood Count 5.6 K/mm3 (4.4-11.0)
[2022-09-09 11:39] LABS: Anion Gap 8 (5-15); BUN 28 mg/dL (7-18); Calcium,Total 9.3 mg/dL (8.5-10.1); Chloride 105 mmol/L (98-107); Creatinine, Serum 1.22 mg/dL (0.70-1.30); EST Glomerular Filtration Rate 62 mL/min (>60); Est Glom Filt Rate - Afr Amer 75 mL/min (>60); Glucose 108 mg/dL (74-106); Potassium 3.9 mmol/L (3.5-5.1); Sodium Level 140 mmol/L (136-145)
[2022-09-09 12:29] LABS: International Normalized Ratio 0.9; Partial Thromboplast Time 24.8 Seconds (24.1-36.2); Prothrombin Time (Protime)PT. 12.1 SECONDS (11.7-14.9)
== END | disposition home or self-care (01) ==
LOC: PSN 08:52
PROVIDERS: PCP Family Medicine; Referring Provider Orthopaedic Surgery; Visit Provider Orthopaedic Surgery
DX: Z01.818 Encounter for other preprocedural examination (principal); Z01.811 Encounter for preprocedural respiratory examination; Z01.810 Encounter for preprocedural cardiovascular examination
CPT/HCPCS: 36415; 71046; 80048; 85025; 85610; 85730; 93005